=== PATIENT | male | born 1975 | race African-American/Black ===

== ENCOUNTER 2017-08-14 16:46 | Inpatient (IN) | payer OTHER ==
[~2017-08-14] VITALS: Ht 182.9 cm; Wt 120.2 kg
--- NOTE | 2017-08-14 17:07 | PHYS DOC ---
Past Medical History Past Medical History: DVT Past Surgical History: No Surgical History Alcohol Use: Occasionally Drug Use: None Adult General Chief Complaint Chief Complaint: LOWER EXT PAIN HPI HPI Patient is a 42 year old male with history of DVTs who presents today with left lower extremity swelling that he noted this morning. Patient denies any known injury. Denies any long air or car travel. Denies any use of hormones. Denies any chest pain but states he has shortness of breath on exertion. Denies any recent hospitalizations. He states he takes aspirin 81 mg daily. Review of Systems Review of Systems Constitutional: Denies fever or chills [] Eyes: Denies change in visual acuity, redness, or eye pain [] HENT: Denies nasal congestion or sore throat [] Respiratory: Denies cough or shortness of breath [] Cardiovascular: No additional information not addressed in HPI [] GI: Denies abdominal pain, nausea, vomiting, bloody stools or diarrhea [] : Denies dysuria or hematuria [] Musculoskeletal: Denies back pain or joint pain [] Integument: Left lower extremity Neurologic: Denies headache, focal weakness or sensory changes [] All other systems were reviewed and found to be within normal limits, except as documented in this note. Current Medications Current Medications Current Medications Medications (Trade) Dose Ordered Sig/Tiara Start Time Stop Time Status Last Admin Dose Admin Acetaminophen (Tylenol) 650 mg PRN Q4HRS PRN 08/14/17 19:45 08/15/17 19:44 Diphtheria/ Tetanus/Acell Pertussis (Boostrix) 0.5 ml ONCE ONCE 08/14/17 17:15 08/14/17 17:16 DC 08/14/17 17:43 0.5 ML Heparin Sodium (Porcine) (Heparin Sodium) 1,600 unit PRN Q6HRS PRN 08/14/17 19:45 Heparin Sodium/ Dextrose 500 ml @ 0 mls/hr CONT PRN 08/14/17 19:45 Info (Do NOT chart on this entry -- for MONITORING) 1 each PRN DAILY PRN 08/14/17 19:45 08/16/17 19:44 Iohexol (Omnipaque 300 Mg/ml) 75 ml 1X ONCE 08/14/17 19:45 08/14/17 19:46 DC Morphine Sulfate 2 mg PRN Q2HR PRN 08/14/17 19:45 08/15/17 19:44 Nitroglycerin (Nitrostat) 0.4 mg PRN Q5MIN PRN 08/14/17 19:45 08/15/17 19:44 Ondansetron HCl (Zofran) 4 mg PRN Q8HRS PRN 08/14/17 19:45 08/15/17 19:44 Sodium Chloride 1,000 ml @ 75 mls/hr 1X ONCE 08/14/17 19:45 08/15/17 09:04 Warfarin Sodium (Coumadin Per Pharmacy) 1 each PRN DAILY PRN 08/14/17 19:45 08/14/17 19:38 1 EACH Warfarin Sodium (Coumadin) 7.5 mg 1X WARF ONCE 08/14/17 20:00 08/14/17 20:01 Allergies Allergies Allergies Coded Allergies Type Severity Reaction Last Updated Verified No Known Drug Allergies 08/14/17 No Physical Exam Physical Exam Constitutional: Well developed, well nourished, no acute distress, non-toxic appearance. [] HENT: Normocephalic, atraumatic, bilateral external ears normal, oropharynx moist, no oral exudates, nose normal. [] Eyes: PERRLA, EOMI, conjunctiva normal, no discharge. [] Neck: Normal range of motion, no tenderness, supple, no stridor. [] Cardiovascular:Heart rate regular rhythm, no murmur [] Lungs & Thorax: Bilateral breath sounds clear to auscultation [] Abdomen: Bowel sounds normal, soft, no tenderness, no masses, no pulsatile masses. [] Skin: Warm, dry, and left lower extremity with +1 generalized swelling. Left lower extremity feels warm. There are varicose veins noted to bilateral lower extremities. +2 bilateral pedal pulses. Negative Homans sign to bilateral lower extremities. Cap refill less than 2 seconds the left lower extremity. Back: No tenderness, no CVA tenderness. [] Extremities: No tenderness, no cyanosis, no clubbing, ROM intact, no edema. [] Neurologic: Alert and oriented X 3, normal motor function, normal sensory function, no focal deficits noted. [] Psychologic: Affect normal, judgement normal, mood normal. [] Current Patient Data Vital Signs Vital Signs Date Time Temp Pulse Resp B/P (MAP) Pulse Ox O2 Delivery O2 Flow Rate FiO2 08/14/17 18:41 90 137/81 (99) 97 Room Air 08/14/17 16:50 98.3 18 98.3 Lab Values Laboratory Tests Test 08/14/17 18:36 White Blood Count 9.1 x10^3/uL (4.0-11.0) Red Blood Count 5.00 x10^6/uL (4.30-5.70) Hemoglobin 13.4 g/dL (13.0-17.5) Hematocrit 40.4 % (39.0-53.0) Mean Corpuscular Volume 81 fL (79-100) Mean Corpuscular Hemoglobin 27 pg (25-35) Mean Corpuscular Hemoglobin Concent 33 g/dL (31-37) Red Cell Distribution Width 13.6 % (11.5-14.5) Platelet Count 206 x10^3/uL (140-400) Neutrophils (%) (Auto) 76 % (31-73) H Lymphocytes (%) (Auto) 13 % (24-48) L Monocytes (%) (Auto) 6 % (0-9) Eosinophils (%) (Auto) 4 % (0-3) H Basophils (%) (Auto) 1 % (0-3) Neutrophils # (Auto) 7.0 x10^3uL (1.8-7.7) Lymphocytes # (Auto) 1.2 x10^3/uL (1.0-4.8) Monocytes # (Auto) 0.6 x10^3/uL (0.0-1.1) Eosinophils # (Auto) 0.4 x10^3/uL (0.0-0.7) Basophils # (Auto) 0.1 x10^3/uL (0.0-0.2) Prothrombin Time 13.2 SEC (11.7-14.0) Prothrombin Time INR 1.1 (0.8-1.1) PTT 25 SEC (24-38) Sodium Level 140 mmol/L (136-145) Potassium Level 3.8 mmol/L (3.5-5.1) Chloride Level 103 mmol/L (98-107) Carbon Dioxide Level 28 mmol/L (21-32) Anion Gap 9 (6-14) Blood Urea Nitrogen 18 mg/dL (8-26) Creatinine 1.1 mg/dL (0.7-1.3) Estimated GFR (Cockcroft-Gault) 89.7 Glucose Level 138 mg/dL (70-99) H Calcium Level 8.9 mg/dL (8.5-10.1) Laboratory Tests 08/14/17 18:36 Laboratory Tests 08/14/17 18:36 EKG EKG [] Radiology/Procedures Radiology/Procedures [] Course & Med Decision Making Course & Med Decision Making Pertinent Labs and Imaging studies reviewed. (See chart for details) This is a 42-year-old male patient with history of diabetes presenting today with left lower extremity swelling for 1 day with SOA on exertion. Doppler of the left lower extremity was obtained. Venous Doppler of the left lower extremity was positive for an extensive venous thrombosis. Consulted with Dr. Yary Edge harpoon engagement planning operator for Dr. Valladares who accepted patient for admission. Patient was started on heparin protocol. CTA chest was ordered. Dragon Disclaimer Dragon Disclaimer This electronic medical record was generated, in whole or in part, using a voice recognition dictation system. Departure Departure Impression: Primary Impression: Deep vein thrombosis (DVT) of left lower extremity Disposition: 09 ADMITTED INPATIENT Admitting Physician: Mayelin Valladares Condition: STABLE Problem Qualifiers Primary Impression: Deep vein thrombosis (DVT) of left lower extremity Affected thrombotic vein of extremity: popliteal Chronicity: unspecified Qualified Codes: I82.432 - Acute embolism and thrombosis of left popliteal vein LEONELA [place] APRN Aug 14, 2017 17:07
[2017-08-14] MEDS ORDERED: DIPHTH,PERTUSS(ACELL),TET TOX 0.5 ML DISP.SYRIN. VAX IM ONE (17:15)
--- NOTE | 2017-08-14 18:33 | RAD ---
A left lower extremity venous Doppler dated 08/14/2017. No comparison available. Clinical indication: Swelling for one day. FINDINGS: Grayscale, color-flow and spectral waveform analysis performed to include the deep venous system of the left lower extremity. There is noncompressibility and lack of flow within the left common femoral vein to the posterior tibial veins of the calf. The distal posterior tibial vein show some flow and there is flow within the peroneal veins. Thrombosis appears to extend to the left iliac vein. The right common femoral vein is patent. IMPRESSION: Extensive left lower extremity deep vein thrombosis. Electronically signed by: Ty Michaels MD (08/14/2017 6:29 PM) [id number]
[2017-08-14 18:50] LABS: BASO # 0.1 x10^3/uL (0.0-0.2); BASO % 1 % (0-3); EOS % 4 % (0-3); HEMATOCRIT 40.4 % (39.0-53.0); HEMOGLOBIN 13.4 g/dL (13.0-17.5); LYMPH # 1.2 x10^3/uL (1.0-4.8); LYMPH % 13 % (24-48); MEAN CORPUSCULAR HEMOGLOBIN 27 pg (25-35); MEAN CORPUSCULAR HGB CONC 33 g/dL (31-37); MEAN CORPUSCULAR VOLUME 81 fL (79-100); MONO % 6 % (0-9); NEUT % 76 % (31-73); PLATELET COUNT 206 x10^3/uL (140-400); RED CELL DISTRIBUTION WIDTH 13.6 % (11.5-14.5); WHITE BLOOD COUNT 9.1 x10^3/uL (4.0-11.0)
[2017-08-14 18:53] LABS: INR 1.1 (0.8-1.1); PROTHROMBIN TIME PATIENT 13.2 SEC (11.7-14.0)
[2017-08-14 18:56] LABS: CALCIUM 8.9 mg/dL (8.5-10.1); CREATININE 1.1 mg/dL (0.7-1.3); GFR 89.7; POTASSIUM 3.8 mmol/L (3.5-5.1)
[2017-08-14] MEDS ORDERED: IV NORMAL SALINE 1000ML BAG 1,000 ML IV ONE (19:45)
[2017-08-14] MEDS ORDERED: HEPARIN for IV BOLUS 10,000 UNIT/10 ML VIAL. IV PRN ×2 (19:45)
[2017-08-14] MEDS ORDERED: ONDANSETRON PF 4 MG/2 ML VIAL. IV PRN (19:45)
[2017-08-14] MEDS ORDERED: IOHEXOL 300 MG/ML 100ML VIAL. IV ONE (19:45)
[2017-08-14] MEDS ORDERED: MORPHINE SULFATE 2 MG/ML DISP.SYRIN. IV PRN (19:45)
[2017-08-14] MEDS ORDERED: HEPARIN for IV BOLUS 10,000 UNIT/10 ML VIAL. IV ONE (19:45)
[2017-08-14] MEDS ORDERED: CONTRAST GIVEN MC PRN (19:45)
[2017-08-14] MEDS ORDERED: NITROGLYCERIN SUBLINGUAL 0.4 MG BOTTLE OF 25. SL PRN (19:45)
[2017-08-14] MEDS ORDERED: ACETAMINOPHEN 325 MG TABLET. PO PRN (19:45)
[2017-08-14] MEDS ORDERED: WARFARIN 7.5 MG TABLET. PO ONE (20:00)
[2017-08-14] MEDS: HEPARIN 25,000UTS/500ML PREMIX 500 ML IV PRN (20:01)
[2017-08-14 21:15] VITALS: BP 146/88
--- NOTE | 2017-08-14 21:29 | RAD ---
Indication: Lower extremity DVT. Shortness of breath. TECHNIQUE: CT angiography of the chest with 75 mL of Omnipaque 300 with multiplanar MIP reformats. COMPARISON: None FINDINGS: Highly limited study due to suboptimal contrast bolus timing. No filling defects in the main pulmonary trunk or proximal right and left pulmonary arteries. Heart is normal in size. No pericardial or pleural effusion. There is dilation of the main pulmonary trunk measuring 3.4 cm. Borderline to minimally enlarged bilateral axillary lymph nodes noted, the largest measuring 1.6 x 1.0 cm on the left. No mediastinal or hilar adenopathy. Lungs are clear. Visualized sections through the liver, spleen, pancreas, adrenals are within normal limits. High attenuating right upper pole renal lesion noted measuring 2 cm. No suspicious bony lesion. IMPRESSION: 1. Significantly limited please study due to contrast bolus timing. No evidence of PE in the main pulmonary trunk or proximal right and left pulmonary arteries. Distal segmental or subsegmental PE not ruled out. If concern remains high, please consider nuclear medicine VQ scan. 2. Dilated main pulmonary artery. Correlate for pulmonary arterial hypertension. 3. Right upper pole renal lesion, indeterminate. Differential diagnoses include minimally complicated cyst, simple cyst or small RCC. Follow-up CT abdomen with IV contrast and 3-4 months recommended. Electronically signed by: Simón Dooley DO (08/14/2017 9:26 PM) [facility]
[2017-08-14 23:52] VITALS: BP 113/72
[2017-08-15 02:21] VITALS: BP 121/79
[2017-08-15 03:26] LABS: BASO # 0.1 x10^3/uL (0.0-0.2); BASO % 1 % (0-3); EOS % 8 % (0-3); HEMATOCRIT 39.7 % (39.0-53.0); LYMPH # 1.3 x10^3/uL (1.0-4.8); LYMPH % 16 % (24-48); MEAN CORPUSCULAR HEMOGLOBIN 27 pg (25-35); MEAN CORPUSCULAR HGB CONC 33 g/dL (31-37); MEAN CORPUSCULAR VOLUME 81 fL (79-100); MONO % 9 % (0-9); NEUT % 66 % (31-73); PLATELET COUNT 195 x10^3/uL (140-400); RED BLOOD COUNT 4.89 x10^6/uL (4.30-5.70); WHITE BLOOD COUNT 7.9 x10^3/uL (4.0-11.0)
[2017-08-15 03:38] LABS: CALCIUM 8.7 mg/dL (8.5-10.1); GFR 100.1; POTASSIUM 3.6 mmol/L (3.5-5.1)
[2017-08-15 03:41] LABS: INR 1.1 (0.8-1.1); PROTHROMBIN TIME PATIENT 13.8 SEC (11.7-14.0)
[2017-08-15 07:00] VITALS: BP 119/78
--- NOTE | 2017-08-15 10:09 | PDOC1 ---
History and Physical Date of Admission Date of Admission DATE: 08/14/17 Identification/Chief Complaint Chief Complaint Swollen leg Problems: Source Source: Patient History of Present Illness History of Present Illness Pt says that he woke up yesterday morning with his entire left leg swollen and in pain. He says that he has history of having small blood clots in the past and was just put on aspirin. He has never been on blood thinners. He has not had any recent injuries. No FH of blood clots that he knows of. Past Medical History Cardiovascular: No pertinent hx Pulmonary: No pertinent hx GI: No pertinent hx Heme/Onc: No pertinent hx Hepatobiliary: No pertinent hx Psych: No pertinent hx Rheumatologic: No pertinent hx Infectious disease: No pertinent hx ENT: No pertinent hx Renal/: No pertinent hx Endocrine: No pertinent hx Dermatology: Eczema Past Surgical History Past Surgical History: No pertinent history Family History Family History: Diabetes Social History Smoke: No ALCOHOL: occassional Drugs: None Current Problem List Problem List Problems Medical Problems: (1) Cellulitis of left lower extremity Status: Acute (2) Deep vein thrombosis (DVT) of left lower extremity Status: Acute (3) Varicose veins of lower extremity Status: Acute Problems: Current Medications Current Medications Current Medications Diphtheria/ Tetanus/Acell Pertussis (Boostrix) 0.5 ml ONCE ONCE VAX IM Last administered on 08/14/17 17:43; Start 08/14/17 at 17:15; Stop 08/14/17 at 17 :16; Status DC Heparin Sodium (Porcine) (Heparin Sodium) 8,500 unit 1X ONCE IV Last administered on 08/14/17 20:00; Start 08/14/17 at 19:45; Stop 08/14/17 at 19 :46; Status DC Heparin Sodium/ Dextrose 500 ml @ 0 mls/hr CONT PRN IV SEE I/O RECORD Last administered on 08/14/17 20:01; Start 08/14/17 at 19:45 Heparin Sodium (Porcine) (Heparin Sodium) 3,200 unit PRN Q6HRS PRN IV FOR UFH LEVEL LESS THAN 0.2; Start 08/14/17 at 19:45 Heparin Sodium (Porcine) (Heparin Sodium) 1,600 unit PRN Q6HRS PRN IV FOR UFH LEVEL 0.2 - 0.29; Start 08/14/17 at 19:45 Warfarin Sodium (Coumadin Per Pharmacy) 1 each PRN DAILY PRN MC PER PROTOCOL Last administered on 08/14/17 19:38; Start 08/14/17 at 19:45 Warfarin Sodium (Coumadin) 7.5 mg 1X WARF ONCE PO Last administered on 19:56; Start 08/14/17 at 20:00; Stop 08/14/17 at 20:01; Status DC Ondansetron HCl (Zofran) 4 mg PRN Q8HRS PRN IV NAUSEA/VOMITING; Start at 19:45; Stop 08/15/17 at 19:44 Morphine Sulfate 2 mg PRN Q2HR PRN IV PAIN; Start 08/14/17 at 19:45; Stop at 19:44 Acetaminophen (Tylenol) 650 mg PRN Q4HRS PRN PO FEVER; Start 08/14/17 at 19:45 ; Stop 08/15/17 at 19:44 Nitroglycerin (Nitrostat) 0.4 mg PRN Q5MIN PRN SL CHEST PAIN; Start 08/14/17 at 19:45; Stop 08/15/17 at 19:44 Sodium Chloride 1,000 ml @ 75 mls/hr 1X ONCE IV Last administered on 22:07; Start 08/14/17 at 19:45; Stop 08/15/17 at 09:04; Status DC Iohexol (Omnipaque 300 Mg/ml) 75 ml 1X ONCE IV Last administered on 20:18; Start 08/14/17 at 19:45; Stop 08/14/17 at 19:46; Status DC Info (Do NOT chart on this entry -- for MONITORING) 1 each PRN DAILY PRN MC SEE COMMENTS; Start 08/14/17 at 19:45; Stop 08/16/17 at 19:44 Allergies Allergies: Coded Allergies: No Known Drug Allergies (Unverified , 08/14/17) ROS General: No: Chills, Night Sweats PSYCHOLOGICAL ROS: No: Anxiety, Depression Eyes: No Decreased vision, No Eye Pain HEENT: No: Visual Changes, Nasal congestion, Sore Throat ALLERGY AND IMMUNOLOGY: No: Hives, Post Nasal Drip Hematological and Lymphatic: YES: Blood Clots, No: Bleeding Problems, Night Sweats Respiratory: No: Cough, Shortness of breath Cardiovascular: No Chest Pain, No Palpitations, No Edema Gastrointestinal: No Nausea, No Vomiting, No Abdominal Pain, No Diarrhea, No Constipation Genitourinary: No Dysuria, No Urgency Musculoskeletal: Yes Joint Swelling, No Joint Pain Neurological: No Impaired Coord/balance, No Numbness/Tingling Skin: No Rash, No Skin Lesion Changes Physical Exam General: Alert, Oriented X3, Cooperative, No acute distress HEENT: Atraumatic, PERRLA, EOMI, Mucous membr. moist/pink Lungs: Clear to auscultation, Normal air movement Heart: RRR, no rubs, no gallops, no murmurs Abdomen: Normal bowel sounds, No tenderness, No hepatosplenomegaly Extremities: Other (left lower extremity swollen from hip on down, NTTP, varicose veins seen) Skin: No rashes, No breakdown, No significant lesion Neuro: Normal tone, Sensation intact, Cranial nerves 3-12 NL Psych/Mental Status: Mental status NL, Mood NL Vitals Vitals Vital Signs Date Time Temp Pulse Resp B/P (MAP) Pulse Ox O2 Delivery O2 Flow Rate FiO2 08/15/17 07:00 98.4 89 20 119/78 (92) 99 Room Air 98.4 Labs Labs Laboratory Tests Test 08/14/17 18:36 08/15/17 02:15 08/15/17 08:05 White Blood Count 9.1 x10^3/uL (4.0-11.0) 7.9 x10^3/uL (4.0-11.0) Red Blood Count 5.00 x10^6/uL (4.30-5.70) 4.89 x10^6/uL (4.30-5.70) Hemoglobin 13.4 g/dL (13.0-17.5) 13.0 g/dL (13.0-17.5) Hematocrit 40.4 % (39.0-53.0) 39.7 % (39.0-53.0) Mean Corpuscular Volume 81 fL (79-100) 81 fL (79-100) Mean Corpuscular Hemoglobin 27 pg (25-35) 27 pg (25-35) Mean Corpuscular Hemoglobin Concent 33 g/dL (31-37) 33 g/dL (31-37) Red Cell Distribution Width 13.6 % (11.5-14.5) 14.0 % (11.5-14.5) Platelet Count 206 x10^3/uL (140-400) 195 x10^3/uL (140-400) Neutrophils (%) (Auto) 76 % (31-73) 66 % (31-73) Lymphocytes (%) (Auto) 13 % (24-48) 16 % (24-48) Monocytes (%) (Auto) 6 % (0-9) 9 % (0-9) Eosinophils (%) (Auto) 4 % (0-3) 8 % (0-3) Basophils (%) (Auto) 1 % (0-3) 1 % (0-3) Neutrophils # (Auto) 7.0 x10^3uL (1.8-7.7) 5.2 x10^3uL (1.8-7.7) Lymphocytes # (Auto) 1.2 x10^3/uL (1.0-4.8) 1.3 x10^3/uL (1.0-4.8) Monocytes # (Auto) 0.6 x10^3/uL (0.0-1.1) 0.7 x10^3/uL (0.0-1.1) Eosinophils # (Auto) 0.4 x10^3/uL (0.0-0.7) 0.6 x10^3/uL (0.0-0.7) Basophils # (Auto) 0.1 x10^3/uL (0.0-0.2) 0.1 x10^3/uL (0.0-0.2) Prothrombin Time 13.2 SEC (11.7-14.0) 13.8 SEC (11.7-14.0) Prothromb Time International Ratio 1.1 (0.8-1.1) 1.1 (0.8-1.1) Activated Partial Thromboplast Time 25 SEC (24-38) Sodium Level 140 mmol/L (136-145) 139 mmol/L (136-145) Potassium Level 3.8 mmol/L (3.5-5.1) 3.6 mmol/L (3.5-5.1) Chloride Level 103 mmol/L (98-107) 105 mmol/L (98-107) Carbon Dioxide Level 28 mmol/L (21-32) 27 mmol/L (21-32) Anion Gap 9 (6-14) 7 (6-14) Blood Urea Nitrogen 18 mg/dL (8-26) 15 mg/dL (8-26) Creatinine 1.1 mg/dL (0.7-1.3) 1.0 mg/dL (0.7-1.3) Estimated GFR (Cockcroft-Gault) 89.7 100.1 Glucose Level 138 mg/dL (70-99) 107 mg/dL (70-99) Calcium Level 8.9 mg/dL (8.5-10.1) 8.7 mg/dL (8.5-10.1) Troponin I Quantitative < 0.017 ng/mL (0.000-0.055) Heparin Anti-Xa Act, Unfractionated 0.41 IU/mL (0.30-0.70) 0.40 IU/mL (0.30-0.70) Laboratory Tests Test 08/14/17 18:36 08/15/17 02:15 08/15/17 08:05 White Blood Count 9.1 x10^3/uL (4.0-11.0) 7.9 x10^3/uL (4.0-11.0) Red Blood Count 5.00 x10^6/uL (4.30-5.70) 4.89 x10^6/uL (4.30-5.70) Hemoglobin 13.4 g/dL (13.0-17.5) 13.0 g/dL (13.0-17.5) Hematocrit 40.4 % (39.0-53.0) 39.7 % (39.0-53.0) Mean Corpuscular Volume 81 fL (79-100) 81 fL (79-100) Mean Corpuscular Hemoglobin 27 pg (25-35) 27 pg (25-35) Mean Corpuscular Hemoglobin Concent 33 g/dL (31-37) 33 g/dL (31-37) Red Cell Distribution Width 13.6 % (11.5-14.5) 14.0 % (11.5-14.5) Platelet Count 206 x10^3/uL (140-400) 195 x10^3/uL (140-400) Neutrophils (%) (Auto) 76 % (31-73) 66 % (31-73) Lymphocytes (%) (Auto) 13 % (24-48) 16 % (24-48) Monocytes (%) (Auto) 6 % (0-9) 9 % (0-9) Eosinophils (%) (Auto) 4 % (0-3) 8 % (0-3) Basophils (%) (Auto) 1 % (0-3) 1 % (0-3) Neutrophils # (Auto) 7.0 x10^3uL (1.8-7.7) 5.2 x10^3uL (1.8-7.7) Lymphocytes # (Auto) 1.2 x10^3/uL (1.0-4.8) 1.3 x10^3/uL (1.0-4.8) Monocytes # (Auto) 0.6 x10^3/uL (0.0-1.1) 0.7 x10^3/uL (0.0-1.1) Eosinophils # (Auto) 0.4 x10^3/uL (0.0-0.7) 0.6 x10^3/uL (0.0-0.7) Basophils # (Auto) 0.1 x10^3/uL (0.0-0.2) 0.1 x10^3/uL (0.0-0.2) Prothrombin Time 13.2 SEC (11.7-14.0) 13.8 SEC (11.7-14.0) Prothromb Time International Ratio 1.1 (0.8-1.1) 1.1 (0.8-1.1) Activated Partial Thromboplast Time 25 SEC (24-38) Sodium Level 140 mmol/L (136-145) 139 mmol/L (136-145) Potassium Level 3.8 mmol/L (3.5-5.1) 3.6 mmol/L (3.5-5.1) Chloride Level 103 mmol/L (98-107) 105 mmol/L (98-107) Carbon Dioxide Level 28 mmol/L (21-32) 27 mmol/L (21-32) Anion Gap 9 (6-14) 7 (6-14) Blood Urea Nitrogen 18 mg/dL (8-26) 15 mg/dL (8-26) Creatinine 1.1 mg/dL (0.7-1.3) 1.0 mg/dL (0.7-1.3) Estimated GFR (Cockcroft-Gault) 89.7 100.1 Glucose Level 138 mg/dL (70-99) 107 mg/dL (70-99) Calcium Level 8.9 mg/dL (8.5-10.1) 8.7 mg/dL (8.5-10.1) Troponin I Quantitative < 0.017 ng/mL (0.000-0.055) Heparin Anti-Xa Act, Unfractionated 0.41 IU/mL (0.30-0.70) 0.40 IU/mL (0.30-0.70) VTE Prophylaxis Ordered VTE Prophylaxis Devices: No VTE Pharmacological Prophylaxi: Yes Assessment/Plan Assessment/Plan Pt is a 42yo AAM admitted for extensive DVT LLE 1)Unprovoked extensive LLE DVT- pt on bridging therapy and has been started on coumadin. Given extensive will consult Vascular to see if pt is a candidate for thrombectomy or if he should just be on medical treatment alone CHARISSE VASQUEZ MD Aug 15, 2017 10:09
[2017-08-15 11:00] VITALS: BP 111/85
[2017-08-15] MEDS: HEPARIN 25,000UTS/500ML PREMIX 500 ML IV PRN (11:58)
--- NOTE | 2017-08-15 12:59 | EKG ---
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 RI6.01 No previous ECG available for comparison Electronically Signed On 08-17-2017 16:54:26 FISHER TERRAPIN by Rock Tamez
[2017-08-15 15:00] VITALS: BP 112/67
[2017-08-15] MEDS ORDERED: WARFARIN 7.5 MG TABLET. PO ONE (16:00)
--- NOTE | 2017-08-15 17:00 | PDOC ---
Provider Note Provider Note (please see full dictation) 42 yo male was admitted with severe left leg swelling and pain. He was found to have extensive left iliofemoral DVT. He is on heparin infusion. Would get a hypercoagulable workup. Discussed risks and potential benefits of catheter directed thrombolysis. After discussing options, he elects to proceed. Will ask IR to start thrombolysis on Thursday. No need for urgent thrombolysis this weekend. JOSEPH WEINBERG MD Aug 15, 2017 16:59
[2017-08-15 19:00] VITALS: BP 122/74
[2017-08-15 22:55] VITALS: BP 131/77
[2017-08-16] MEDS: HEPARIN 25,000UTS/500ML PREMIX 500 ML IV PRN ×2 (02:51→17:58)
[2017-08-16 03:00] VITALS: BP 124/85
[2017-08-16 06:12] LABS: HEMATOCRIT 39.4 % (39.0-53.0); HEMOGLOBIN 12.9 g/dL (13.0-17.5); RED BLOOD COUNT 4.85 x10^6/uL (4.30-5.70); RED CELL DISTRIBUTION WIDTH 13.9 % (11.5-14.5); WHITE BLOOD COUNT 8.1 x10^3/uL (4.0-11.0)
[2017-08-16 06:23] LABS: INR 1.2 (0.8-1.1)
[2017-08-16 07:00] VITALS: BP 122/74
--- NOTE | 2017-08-16 09:05 | PDOC ---
SUBJECTIVE Subjective Pt doing well. Pain in leg has improved. Denies any chest pain or shortness of air. OBJECTIVE Vital Signs Vital Signs Date Time Temp Pulse Resp B/P (MAP) Pulse Ox O2 Delivery O2 Flow Rate FiO2 08/16/17 08:15 Room Air 08/16/17 07:00 97.7 83 20 122/74 (90) 97 Room Air 97.7 08/16/17 03:00 97.9 84 16 124/85 (98) 96 Room Air 97.9 08/15/17 22:55 97.7 82 16 131/77 (95) 96 Room Air 97.7 08/15/17 22:45 Room Air 08/15/17 19:00 97.9 85 18 122/74 (90) 93 Room Air 97.9 08/15/17 15:00 99.7 87 20 112/67 (82) 97 Room Air 99.7 08/15/17 11:00 99.5 72 20 111/85 (94) 97 Room Air 99.5 I & O Intake and Output 08/16/17 07:00 Intake Total 2050 ml Output Total 1200 ml Balance 850 ml Intake Oral 1050 ml IV Total 1000 ml Output Urine Total 1200 ml # Voids 2 PHYSICAL EXAM Physical Exam General: Alert, Oriented X3, Cooperative, No acute distress HEENT: Atraumatic, PERRLA, EOMI, Mucous membr. moist/pink Lungs: Clear to auscultation, Normal air movement Heart: RRR, no rubs, no gallops, no murmurs Abdomen: Normal bowel sounds, No tenderness, No hepatosplenomegaly Extremities: Other (left lower extremity swollen from hip on down, NTTP, varicose veins seen) Skin: No rashes, No breakdown, No significant lesion Neuro: Normal tone, Sensation intact, Cranial nerves 3-12 NL Psych/Mental Status: Mental status NL, Mood NL ASSESSMENT/PLAN Assessment/Plan Pt is a 42yo AAM admitted for extensive DVT LLE 1)Unprovoked extensive LLE ileofemoral DVT- pt on Heparin and Warfarin. Vascular has been consulted and are planning on IR doing catheter directed thrombolysis Thursday. They have ordered coagulative workup. 2)Renal lesions- incidental finding on CT. Repeat CT Ab in 3-4 mo Problems: COMMENT Lab Laboratory Tests Test 08/15/17 13:39 11/19/17 05:20 Heparin Anti-Xa Act, Unfractionated 0.39 IU/mL (0.30-0.70) 0.31 IU/mL (0.30-0.70) White Blood Count 8.1 x10^3/uL (4.0-11.0) Red Blood Count 4.85 x10^6/uL (4.30-5.70) Hemoglobin 12.9 g/dL (13.0-17.5) Hematocrit 39.4 % (39.0-53.0) Mean Corpuscular Volume 81 fL (79-100) Mean Corpuscular Hemoglobin 27 pg (25-35) Mean Corpuscular Hemoglobin Concent 33 g/dL (31-37) Red Cell Distribution Width 13.9 % (11.5-14.5) Platelet Count 200 x10^3/uL (140-400) Prothrombin Time 14.0 SEC (11.7-14.0) Prothromb Time International Ratio 1.2 (0.8-1.1) CHARISSE VASQUEZ MD Aug 16, 2017 09:05
--- NOTE | 2017-08-16 10:11 | CONS ---
DATE OF CONSULTATION: 08/15/2017 CHIEF COMPLAINT: Left leg swelling. HISTORY OF PRESENT ILLNESS: The patient is a 42-year-old male who was admitted yesterday with sudden onset left leg swelling. He awoke with left leg swelling and discomfort. He denies any previous history of leg swelling or history of deep venous thrombosis. He denies any family history of deep venous thrombosis. He denies any recent leg injury or prolonged periods of immobility. An ultrasound showed extensive left lower extremity deep venous thrombosis extending from the tibial veins, up through the left common femoral vein and into the iliac vein. He notes some improvement in his leg pain today with elevation. PAST MEDICAL HISTORY: None. He denies any previously known history of diabetes, hypertension or deep venous thrombosis. PAST SURGICAL HISTORY: Corneal transplant in February of this year. This was performed at [facility]. MEDICATIONS PRIOR TO ADMISSION: None. CURRENT MEDICATIONS: Heparin infusion. ALLERGIES: No known drug allergies. SOCIAL HISTORY: He denies any smoking. He notes very occasional alcohol use. FAMILY HISTORY: No family history of venous thrombosis. His mother has a history of diabetes as well as previous cerebrovascular accident. REVIEW OF SYSTEMS: No recent fevers, chills, chest pain or shortness of breath. No nausea, vomiting, diarrhea, constipation, hematochezia or melena, other GI symptoms. No unilateral weakness, numbness, vision loss, speech change, TIA or stroke type symptoms. He denies any previous lower extremity pain or swelling. PHYSICAL EXAMINATION: GENERAL: This is an obese male, in no acute distress. VITAL SIGNS: Temperature 99.7, pulse 87, blood pressure 112/67, respirations 20. NECK: Supple, no lymphadenopathy. CARDIOVASCULAR: Regular rhythm. ABDOMEN: Obese, soft, nontender, nondistended, no palpable masses. EXTREMITIES: He has palpable radial and pedal pulses bilaterally. He has moderate to severe swelling starting from the left thigh distally. No areas of skin breakdown on either lower extremity. LABORATORY DATA: Significant for white blood cell 7.9, hemoglobin 13.0, platelet count of 195. INR 1.1. Sodium 139, potassium 3.6, BUN 15, creatinine 1.0. Ultrasound as noted above. IMPRESSION: 1. Extensive left lower extremity deep venous thrombosis, extending up into the left iliac vein. This appears to be an unprovoked deep venous thrombosis. 2. Obesity. RECOMMENDATIONS: 1. Systemic anticoagulation. He is currently on a heparin infusion. 2. I outlined the options including risks and potential benefits of catheter-directed thrombolysis as well as the long-term risks of left leg deep venous thrombosis. Catheter-directed thrombolysis has been shown to decrease the risk of long-term postphlebitic syndrome. There are risks with the procedure itself including bleeding, infection, nerve injury. Bleeding may be at remote sites including intracranial bleeding, which can be catastrophic. After discussing risks and potential benefits of all treatment options, he would like to proceed with a catheter-directed thrombolysis to decrease his long-term risk of swelling and skin changes. Would hold warfarin anticoagulation, and we will ask Interventional Radiology to initiate thrombolysis on Thursday. We will get a hypercoagulable workup to help determine if he has a predisposition for venous thrombosis. JOSEPH WEINBERG MD DR: EVERETTE/issac JOB#: [id number] / [id number] jonnathan DEAN DR
[2017-08-16 10:51] VITALS: BP 114/68
[2017-08-16 15:00] VITALS: BP 142/55
[2017-08-16 19:00] VITALS: BP 152/91
[2017-08-16 23:00] VITALS: BP 129/84
[2017-08-17] VITALS (14 sets, daily range): BP systolic 119–153; BP diastolic 80–98
[2017-08-17 04:49] LABS: INR 1.3 (0.8-1.1); PROTHROMBIN TIME PATIENT 15.2 SEC (11.7-14.0)
[2017-08-17] MEDS ORDERED: LIDOCAINE 1% / SOD BICARB 8.4% 20 ML VIAL. IJ ONE ×2 (08:43→09:45)
[2017-08-17] MEDS ORDERED: IOHEXOL 300 MG/ML 100ML VIAL. ONE ×3 (08:44→13:19)
[2017-08-17] MEDS ORDERED: MIDAZOLAM HCL/PF 2 MG/2 ML VIAL. ONE (08:53)
[2017-08-17] MEDS ORDERED: fentaNYL PF VIAL 100 MCG/2 ML VIAL ONE (08:53)
[2017-08-17] MEDS ORDERED: ALTEPLASE 2MG VIAL 10 MG in IV NORMAL SALINE 100ML 100 ML IV ONE (09:00)
[2017-08-17] MEDS ORDERED: HEPARIN for IV BOLUS 10,000 UNIT/10 ML VIAL. ONE (09:18)
[2017-08-17] MEDS ORDERED: IOHEXOL 300 MG/ML 100ML VIAL. IART ONE ×2 (09:45→15:15)
[2017-08-17] MEDS ORDERED: MIDAZOLAM HCL/PF 2 MG/2 ML VIAL. IV ONE (09:45)
[2017-08-17] MEDS ORDERED: HEPARIN for IV BOLUS 10,000 UNIT/10 ML VIAL. IV ONE (09:45)
[2017-08-17] MEDS ORDERED: CONTRAST GIVEN MC PRN ×2 (09:45→11:00)
[2017-08-17] MEDS ORDERED: fentaNYL PF VIAL 100 MCG/2 ML VIAL IV ONE ×2 (09:45→12:15)
[2017-08-17] MEDS ORDERED: HEPARIN PF 500 UNIT/5 ML DISP.SYRIN. IV ONE ×2 (10:08→10:12)
[2017-08-17] MEDS ORDERED: IV NORMAL SALINE 1000ML BAG 1,000 ML IV ONE (10:15)
[2017-08-17] MEDS ORDERED: IOHEXOL 300 MG/ML 100ML VIAL. IV ONE ×2 (11:00)
[2017-08-17] MEDS ORDERED: FLU VACC QS2017-18 (36MOS+)/PF 0.5 ML SYRINGE. VAX IM ONE (11:00)
[2017-08-17 11:12] LABS: INR 1.2 (0.8-1.1); PROTHROMBIN TIME PATIENT 14.7 SEC (11.7-14.0)
--- NOTE | 2017-08-17 11:16 | PDOC ---
Provider Note Provider Note Vascular consults follow-up: Patient has had infusion catheter placed today. He is transferred to the intensive care unit for overnight thrombolysis. Review the results of his when complete. he may have iliac vein compression, as a causative etiology . HARDEEP SUE MD Aug 17, 2017 11:16
[2017-08-17] MEDS: HEPARIN 25,000UTS/500ML PREMIX 500 ML IV PRN (12:54)
[2017-08-17] MEDS ORDERED: fentaNYL PF VIAL 250 MCG/5 ML VIAL ONE (13:56)
[2017-08-17] MEDS ORDERED: MIDAZOLAM HCL/PF 5 MG/5 ML VIAL. ONE (13:56)
[2017-08-17] MEDS ORDERED: MORPHINE SULFATE 4 MG/ML DISP.SYRIN. IV PRN (14:45)
[2017-08-17] MEDS ORDERED: oxyCODONE/APAP 5/325 1 TAB TABLET PO PRN (14:45)
[2017-08-17] MEDS ORDERED: ONDANSETRON PF 4 MG/2 ML VIAL. IV PRN (14:45)
[2017-08-17] MEDS ORDERED: HEPARIN 25,000UTS/500ML PREMIX 500 ML IV PRN (15:00)
[2017-08-17] MEDS ORDERED: ALTEPLASE 25 MG in IV NORMAL SALINE 250ML 250 ML IV SCH ×2 (15:00→22:30)
[2017-08-17] MEDS ORDERED: fentaNYL PF VIAL 250 MCG/5 ML VIAL IV ONE (15:15)
[2017-08-17] MEDS ORDERED: MIDAZOLAM HCL/PF 5 MG/5 ML VIAL. IV ONE (15:15)
--- NOTE | 2017-08-17 15:38 | RAD ---
CT venogram abdomen, pelvis, upper thighs 08/17/2017 Indication: Abnormal venogram earlier today during attempted thrombolysis of the left lower extremity DVT. Technique: Multidetector CT imaging of the abdomen, pelvis, and thighs was performed following intravenous administration of IV contrast. 102nd delay was obtained. Discussion: There is diffuse edema through the left thigh. There is acute deep venous thrombosis involving the left lower extremity from the common femoral vein through the popliteal vein. Contrast from prior venogram was noted within the vein. The left common iliac vein is nonvisualized and appears to be at a chronically occluded or hypoplastic. Inferior vena cava is not visualized and appears to be either chronically occluded or hypoplastic. On the right the external iliac vein joins the internal iliac vein, however the common iliac vein is again not visualized. Multiple smaller collateral veins appear to be present. Filling of enlarged azygous and hemiazygos veins noted. 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 The renal veins appear to decompress through collateral veins including a probable splenorenal shunt on the left, and the ascites and hemiazygous collaterals. The azygous vein at the level of the descending thoracic aorta is a coronal in size to the descending thoracic aorta. The visualized lung bases demonstrate no acute abnormality. Hepatic veins are grossly patent emptying into a relatively normal-appearing proximal most IVC as it enters the right atrium. Liver is otherwise unremarkable. Gallbladder is unremarkable. Adrenal glands are grossly normal. Small hypodensities are noted throughout the right kidney suggestive of renal cysts. Contrast excretion from the kidneys noted. Spleen is normal in size if not slightly small. Pancreas is grossly unremarkable. No bowel obstruction is identified. No significant free fluid or free air is seen in the abdomen or pelvis. No gross bowel abnormality is detected. Impression: 1. Acute left lower extremity DVT with left lower extremity edema 2. 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 Multiple large collateral vessels are noted
[2017-08-17 15:56] LABS: HEMATOCRIT 44.1 % (39.0-53.0); HEMOGLOBIN 14.1 g/dL (13.0-17.5); RED BLOOD COUNT 5.27 x10^6/uL (4.30-5.70); RED CELL DISTRIBUTION WIDTH 14.3 % (11.5-14.5); WHITE BLOOD COUNT 14.5 x10^3/uL (4.0-11.0)
[2017-08-17 15:59] LABS: CALCIUM 9.3 mg/dL (8.5-10.1); CREATININE 0.9 mg/dL (0.7-1.3); GFR 113.1
[2017-08-17 16:01] LABS: POTASSIUM 3.4 mmol/L (3.5-5.1)
--- NOTE | 2017-08-17 18:12 | PDOC ---
ICU PROGRESS NOTES Subjective Transferred to ICU by vascular for thrombolytic therapy and had partial thrombectomy earlier today without complication. Still has left leg edema but no chest pain or SOA Objective Vitals Vital Signs Date Time Temp Pulse Resp B/P (MAP) Pulse Ox O2 Delivery O2 Flow Rate FiO2 08/17/17 16:24 98 12 122/88 (99) 99 Room Air 08/17/17 15:30 98.1 98.1 Input & Output Intake and Output 08/17/17 07:00 Intake Total 850 ml Output Total 1000 ml Balance -150 ml Intake Oral 350 ml IV Total 500 ml Output Urine Total 1000 ml Ventilator Settings Oxygen Delivery Device: Room Air SpO2: 99 Medications Medications Current Medications Alteplase, Recombinant 10 mg/ Sodium Chloride 100 ml @ 10 mls/hr 1X ONCE IV Last administered on 08/17/17 15:07; Start 08/17/17 at 09:00; Stop 08/17/17 at 18:59 Alteplase, Recombinant 25 mg/ Sodium Chloride 250 ml @ 10 mls/hr Q25H IV Last administered on 08/17/17 15:34; Start 08/17/17 at 15:00; Stop 08/17/17 at 15 :35; Status DC Famotidine (Pepcid Vial) 20 mg BID IVP ; Start 08/17/17 at 21:00 Fentanyl Citrate (Fentanyl 2ml Vial) 50 mcg 1X ONCE IV Last administered on 12:04; Start 08/17/17 at 12:15; Stop 08/17/17 at 12:16; Status DC Fentanyl Citrate (Fentanyl 2ml Vial) 100 mcg 1X ONCE IV Last administered on 08/17/17 10:14; Start 08/17/17 at 09:45; Stop 08/17/17 at 09:46; Status DC Fentanyl Citrate (Fentanyl 2ml Vial) 100 mcg STK-MED ONCE .ROUTE ; Start at 08:53; Stop 08/17/17 at 08:54; Status DC Fentanyl Citrate (Fentanyl 5ml Vial) 100 mcg 1X ONCE IV ; Start 08/17/17 at 15 :15; Stop 08/17/17 at 15:16; Status DC Fentanyl Citrate (Fentanyl 5ml Vial) 250 mcg STK-MED ONCE .ROUTE ; Start at 13:56; Stop 08/17/17 at 13:57; Status DC Heparin Sodium (Porcine) (Hep Lock Adult) 500 unit STK-MED ONCE IV ; Start at 10:08; Stop 08/17/17 at 10:09; Status DC Heparin Sodium (Porcine) (Hep Lock Adult) 500 unit STK-MED ONCE IV ; Start at 10:12; Stop 08/17/17 at 10:13; Status DC Heparin Sodium (Porcine) (Heparin Sodium) 10,000 unit 1X ONCE IV Last administered on 08/17/17t 10:14; Start 08/17/17 at 09:45; Stop 08/17/17 at 09 :46; Status DC Heparin Sodium (Porcine) (Heparin Sodium) 10,000 unit STK-MED ONCE .ROUTE ; Start 08/17/17 at 09:18; Stop 08/17/17 at 09:19; Status DC Heparin Sodium/ Dextrose 500 ml @ 0 mls/hr CONT PRN IV SEE I/O RECORD Last administered on 08/17/17t 15:37; Start 08/17/17 at 15:00 Heparin Sodium/ Sodium Chloride 500 ml @ As Directed STK-MED ONCE .ROUTE ; Start 08/17/17 at 09:18; Stop 08/17/17 at 09:19; Status DC Heparin Sodium/ Sodium Chloride 1,000 ml @ As Directed STK-MED ONCE .ROUTE ; Start 08/17/17 at 08:43; Stop 08/17/17 at 08:44; Status DC Heparin Sodium/ Sodium Chloride 2,000 unit 1X ONCE IART Last administered on 08/17/17t 10:16; Start 08/17/17 at 09:45; Stop 08/17/17 at 09:46; Status DC Influenza Virus Vaccine Quadrival (Fluarix Quad [id number] Syringe) 0.5 ml ONCE ONCE VAX IM ; Start 08/17/17 at 11:00; Stop 08/17/17 at 11:01; Status DC Info (Do NOT chart on this entry -- for MONITORING) 1 each PRN DAILY PRN MC SEE COMMENTS; Start 08/17/17 at 09:45; Stop 08/19/17 at 09:44; Status Cancel Info (Do NOT chart on this entry -- for MONITORING) 1 each PRN DAILY PRN MC SEE COMMENTS; Start 08/17/17 at 11:00; Stop 08/19/17 at 10:59 Iohexol (Omnipaque 300 Mg/ml) 25 ml 1X ONCE IV Last administered on 11:02; Start 08/17/17 at 11:00; Stop 08/17/17 at 11:01; Status DC Iohexol (Omnipaque 300 Mg/ml) 40 ml 1X ONCE IART ; Start 08/17/17 at 15:15; Stop 08/17/17 at 15:16; Status DC Iohexol (Omnipaque 300 Mg/ml) 100 ml 1X ONCE IART Last administered on 10:16; Start 08/17/17 at 09:45; Stop 08/17/17 at 09:46; Status DC Iohexol (Omnipaque 300 Mg/ml) 100 ml 1X ONCE IV Last administered on 11:02; Start 08/17/17 at 11:00; Stop 08/17/17 at 11:01; Status DC Iohexol (Omnipaque 300 Mg/ml) 100 ml STK-MED ONCE .ROUTE ; Start 08/17/17 at 08 :44; Stop 08/17/17 at 08:45; Status DC Iohexol (Omnipaque 300 Mg/ml) 100 ml STK-MED ONCE .ROUTE ; Start 08/17/17 at 09 :43; Stop 08/17/17 at 09:44; Status DC Iohexol (Omnipaque 300 Mg/ml) 100 ml STK-MED ONCE .ROUTE ; Start 08/17/17 at 13 :19; Stop 08/17/17 at 13:20; Status DC Lidocaine/Sodium Bicarbonate (Buffered Lidocaine 1%) 20 ml 1X ONCE IJ Last administered on 08/17/17 10:15; Start 08/17/17 at 09:45; Stop 08/17/17 at 09 :46; Status DC Lidocaine/Sodium Bicarbonate (Buffered Lidocaine 1%) 20 ml STK-MED ONCE IJ ; Start 08/17/17 at 08:43; Stop 08/17/17 at 08:44; Status DC Midazolam HCl (Versed) 2 mg 1X ONCE IV Last administered on 08/17/17 10:15; Start 08/17/17 at 09:45; Stop 08/17/17 at 09:46; Status DC Midazolam HCl (Versed) 2 mg STK-MED ONCE .ROUTE ; Start 08/17/17 at 08:53; Stop 08/17/17 at 08:54; Status DC Midazolam HCl (Versed) 2.5 mg 1X ONCE IV ; Start 08/17/17 at 15:15; Stop at 15:16; Status DC Midazolam HCl (Versed) 5 mg STK-MED ONCE .ROUTE ; Start 08/17/17 at 13:56; Stop 08/17/17 at 13:57; Status DC Morphine Sulfate 4 mg PRN Q2HR PRN IV MODERATE, SEVERE PAIN Last administered on 08/17/17 15:28; Start 08/17/17 at 14:45 Ondansetron HCl (Zofran) 4 mg PRN Q6HRS PRN IV NAUSEA/VOMITING; Start at 14:45 Oxycodone/ Acetaminophen (Percocet 5/325) 1 tab PRN Q4HRS PRN PO MILD PAIN; Start 08/17/17 at 14:45 Oxycodone/ Acetaminophen (Percocet 5/325) 2 tab PRN Q4HRS PRN PO MODERATE PAIN , SEVERE PAIN; Start 08/17/17 at 16:45 Sodium Chloride 1,000 ml @ 125 mls/hr 1X ONCE IV Last administered on t 10:15; Start 08/17/17 at 10:15; Stop 08/17/17 at 18:14 Physical Exam ROS: No Nausea, No Chest Pain, No Abdominal Pain General: Alert, Oriented X4, No acute distress Lungs: Clear Cardiovascular: S1, S2 Abdomen: Soft, Non-tender Skin: Warm Neuro Exam: Normal Speech Impression . occlusive DVT left leg - likely May-Thurner Syndrome Plan . continue thrombolytics with more clot extraction planned tomorrow by Nevaeh MONCADA MD Aug 17, 2017 18:12
[2017-08-17] MEDS: FAMOTIDINE 20 MG/2 ML VIAL IVP SCH (21:12)
[2017-08-17 21:23] LABS: HEMOGLOBIN 13.4 g/dL (13.0-17.5); RED BLOOD COUNT 5.01 x10^6/uL (4.30-5.70); RED CELL DISTRIBUTION WIDTH 13.7 % (11.5-14.5)
[2017-08-17 21:49] LABS: CALCIUM 9.3 mg/dL (8.5-10.1); GFR 100.1; POTASSIUM 3.9 mmol/L (3.5-5.1)
[2017-08-17] MEDS: oxyCODONE/APAP 5/325 1 TAB TABLET PO PRN (23:30)
[2017-08-18] VITALS (19 sets, daily range): BP systolic 104–180; BP diastolic 62–90
[2017-08-18 03:50] LABS: HEMATOCRIT 38.2 % (39.0-53.0); HEMOGLOBIN 12.6 g/dL (13.0-17.5); RED BLOOD COUNT 4.69 x10^6/uL (4.30-5.70); RED CELL DISTRIBUTION WIDTH 13.6 % (11.5-14.5); WHITE BLOOD COUNT 10.3 x10^3/uL (4.0-11.0)
[2017-08-18 03:59] LABS: INR 1.8 (0.8-1.1); PROTHROMBIN TIME PATIENT 19.7 SEC (11.7-14.0)
[2017-08-18 04:05] LABS: CALCIUM 8.5 mg/dL (8.5-10.1); CREATININE 0.9 mg/dL (0.7-1.3); GFR 113.1; POTASSIUM 3.6 mmol/L (3.5-5.1)
[2017-08-18] MEDS ORDERED: HEPARIN for IV BOLUS 10,000 UNIT/10 ML VIAL. IV PRN ×2 (04:45)
[2017-08-18] MEDS ORDERED: IV NORMAL SALINE 250ML 250 ML IV PRN (05:00)
[2017-08-18] MEDS: HEPARIN 25,000UTS/500ML PREMIX 500 ML IV PRN ×2 (05:00→16:30)
[2017-08-18 09:15] LABS: HEMATOCRIT 41.5 % (39.0-53.0); HEMOGLOBIN 13.5 g/dL (13.0-17.5); RED BLOOD COUNT 5.1 x10^6/uL (4.30-5.70); RED CELL DISTRIBUTION WIDTH 14.2 % (11.5-14.5); WHITE BLOOD COUNT 9.6 x10^3/uL (4.0-11.0)
[2017-08-18] MEDS ORDERED: IOHEXOL 300 MG/ML 100ML VIAL. ONE ×2 (09:51→10:27)
[2017-08-18] MEDS ORDERED: LIDOCAINE 1% / SOD BICARB 8.4% 20 ML VIAL. IJ ONE ×2 (09:51→10:45)
[2017-08-18 10:12] LABS: CALCIUM 9.2 mg/dL (8.5-10.1); CREATININE 0.9 mg/dL (0.7-1.3); GFR 113.1; POTASSIUM 3.7 mmol/L (3.5-5.1)
[2017-08-18] MEDS ORDERED: IOHEXOL 300 MG/ML 100ML VIAL. IART ONE (10:45)
--- NOTE | 2017-08-18 11:44 | PDOC ---
Provider Note Provider Note IR NOTE Mr Guo presented with LLE DVT from popliteal vein into iliacs, by ultrasound. Conventional and CT venograms were obtained during initial thrombolysis from a left popliteal approach. 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 This appear to involve the renal veins, as large collaterals are seen on both sides. The common iliac veins are non visualized and the lower extremities drain to multiple pelvic collaterals, and via the azygous and hemiazygous veins. 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 Over night the patient' s fibrinogen dropped to below 60 despite tPA dose adjustment, necessitating termination of thrombolysis and resumption of heparin anticoagulation. Venogram was performed today showing successful removal of clot from the targeted veins. however there is very limited outflow, which is at least partially chronic. Sheath was removed. Can resume anticoagulation today. Would consider adding compression stockings. RAYRAY BOLIVAR MD Aug 18, 2017 11:44
[2017-08-18] MEDS: FAMOTIDINE 20 MG/2 ML VIAL IVP SCH (13:07)
[2017-08-18] MEDS: oxyCODONE/APAP 5/325 1 TAB TABLET PO PRN ×2 (13:07→21:06)
[2017-08-18] MEDS ORDERED: WARFARIN 5 MG TABLET. PO ONE (16:00)
--- NOTE | 2017-08-18 16:49 | PDOC ---
Provider Note Provider Note Vascular F/U Venogram and CT reviewed. 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 This accounts for his stanley. varicose veins and thrombosis Discussed with pt. Needs Stanley 20 mmHg compression support hose Rx give to pt. For now: Stanley knee high medium strength tubigrips Severe elevation of lt leg when in bed, no prolonged sitting, meals and BR only OK to ambulate and ok to RTW when he has proper compression and anticoagulation , Will allow ambulation when Tubigripson Add Aspirin 325 mg daily to prevent platelet clots as well as coumadin Will have pt. F/U with Dr. Turner at [facility] TEJ CASTELLANOS MD Aug 18, 2017 16:49
--- NOTE | 2017-08-18 17:31 | PDOC ---
PROGRESS NOTES Subjective s/p thrombectomy of left leg, inferior vena cava with congenital hypoplasia and multiple collateral veins present, he is now out of the ICU and stable on cardiac unit. He has no other complaints, eating, feels fine Objective Afebrile General: NAD, A&O Heart: RRR no M Lungs: CTAB Abd: soft and non tender, non distended Ext: improved edema of left leg Vital Signs Vital Signs Date Time Temp Pulse Resp B/P (MAP) Pulse Ox O2 Delivery O2 Flow Rate FiO2 08/18/17 14:07 16 96 Room Air 08/18/17 14:00 90 180/80 (113) 08/18/17 13:30 98.6 98.6 I & O Intake and Output 08/18/17 07:00 Intake Total 2125 ml Output Total 2150 ml Balance -25 ml Intake Oral 700 ml IV Total 1425 ml Output Urine Total 2150 ml Assessment and Plan Status: Acute (1) Deep vein thrombosis (DVT) of left lower extremity -s/p thrombectomy, congenital hypoplasia of inferior vena cava. Discussed with Dr. Ozuna, he will need lifelong anticoagulation and referral back to eventually Status: Acute (2) Varicose veins of lower extremity Status: Acute Problems: Nevaeh DEAN MD Aug 18, 2017 17:31
[2017-08-18] MEDS: FAMOTIDINE 20 MG TABLET. PO SCH (21:06)
[2017-08-19 01:01] LABS: INR 1.3 (0.8-1.1); PROTHROMBIN TIME PATIENT 15.1 SEC (11.7-14.0)
[2017-08-19 03:07] VITALS: BP 125/63
[2017-08-19] MEDS: HEPARIN 25,000UTS/500ML PREMIX 500 ML IV PRN ×2 (04:12→16:19)
[2017-08-19 07:20] VITALS: BP 127/72
[2017-08-19 07:35] LABS: ANTITHROMBIN III SEE SEPARATE REPORT; LUPUS ANTICOAGULANT SEE SEPARATE REPORT; PROTEIN C ACTIVITY SEE SEPARATE REPORT; PROTEIN S ACTIVITY SEE SEPARATE REPORT
[2017-08-19] MEDS: FAMOTIDINE 20 MG TABLET. PO SCH ×2 (08:40→20:39)
[2017-08-19] MEDS: ASPIRIN 325 MG TABLET PO SCH (08:40)
--- NOTE | 2017-08-19 08:40 | RAD ---
11.20.17 1. Left lower extremity venogram 2. TPA thrombolysis and rheolytic thrombectomy left popliteal, superficial femoral, and common femoral veins 3. Catheter directed thrombolysis left popliteal to left common femoral vein Indication: 42-year-old male with acute left lower extremity edema and ultrasound findings of extensive deep venous thrombosis throughout the left lower extremity extending into the iliac veins Discussion: The risks and benefits of the procedure were discussed the patient. Informed consent was obtained. Timeout procedure was performed. The patient was brought to fluoroscopy suite placed in the prone position. The left posterior knee was prepped and draped using maximum sterile barrier technique. Ultrasound guidance and micropuncture technique was used to access the left popliteal vein. Static ultrasound images were saved medical record. A 5 [place] sheath was placed. A venogram was performed demonstrating extensive deep venous thrombosis from the popliteal vein through the common femoral vein and distal external iliac vein. A guidewire and catheter were advanced centrally. Central venograms were performed demonstrating nonvisualization of the left common iliac vein, or IVC. Multiple collateral veins are seen. Very slow drainage through pelvic and paraspinal veins noted. Patient was therefore transferred to the CT scanner and CT venography performed for further evaluation. 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 See report of CT for details. Findings were discussed the patient's vascular surgeon. Decision was made to continue with thrombolysis of the popliteal through common femoral veins to help improve venous drainage in this patient with chronic venous disease. Protocol mechanical thrombolysis using the AngioJet device and approximately 10 mg of TPA was performed. While this improved clot burden, significant residual clot was felt to be present. Thrombolysis was therefore initiated 1 mg an hour of TPA. Transferred to the intensive care unit. The patient had a significant drop in fibrinogen necessitating termination of TPA thrombolysis. The patient was placed on heparin drip. Patient was brought to interventional radiology and a follow-up venogram demonstrated near total recommendation of thrombus from the popliteal, superficial femoral, and common femoral veins. The patient has experienced some decrease in leg swelling. The sheath was removed and manual pressure held to achieve hemostasis. Sterile dressing was applied. No immediate complications were identified. The procedures performed under conscious sedation including continuous cardiopulmonary monitoring via dedicated sedation nurse. Total sedation time, 2 hours Fluoroscopy time: DAY 1: Fluoroscopy TIME: 12.2 MIN Dose area product: 524 Gycm2 Day 2: Fluoroscopy TIME 3.7 MINUTES Dose area product: 176 Gycm2 Impression: 1. Acute deep venous thrombosis throughout the left lower extremity as described 2. 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 Successful thrombolysis of the left popliteal, superficial femoral, and common femoral veins
[2017-08-19 10:34] VITALS: BP 118/77
--- NOTE | 2017-08-19 12:00 | PDOC ---
PROGRESS NOTES Subjective Tolerating heparin, no bleeding issues, INR this am 1.3 after 5 mg warfarin last alicia, left leg feels better, swelling improved, no SOA, no chest pain, normal bowel function Objective Afebrile General: NAD Heart: RRR normal S1, S2 Lungs: CTAB Abd: soft and non tender, normal bowel sounds Ext: compression sock left lower leg, swelling into thigh present Skin: no bruising Vital Signs Vital Signs Date Time Temp Pulse Resp B/P (MAP) Pulse Ox O2 Delivery O2 Flow Rate FiO2 08/19/17 10:34 97.8 77 18 118/77 (91) 99 Room Air 97.8 I & O Intake and Output 08/19/17 07:00 Intake Total 200 ml Output Total 1800 ml Balance -1600 ml Intake Oral 200 ml Output Urine Total 1800 ml # Voids 5 Assessment and Plan Assessment (1) Deep vein thrombosis (DVT) of left lower extremity - s/p thrombectomy, clot extends into vena cava - continue anticoagulation with heparin, warfarin and aspirin, home when INR >2 Status: Acute (3) Varicose veins of lower extremity Status: Acute Problems: Nevaeh DEAN MD Aug 19, 2017 12:00
[2017-08-19 15:11] VITALS: BP 129/76
[2017-08-19] MEDS ORDERED: WARFARIN 6 MG TABLET. PO ONE (16:00)
--- NOTE | 2017-08-19 18:39 | PDOC ---
Provider Note Provider Note Vascular F/U Feeling better. Has ambulated today Tubugrips in place INR 1.3 Imp: Stable after lysis DVT lt leg Plan; Cont. coumadin , consider home on ASA/ coumadin and Lovenox until coumadin theraputic TEJ CASTELLANOS MD Aug 19, 2017 18:39
[2017-08-19 19:21] VITALS: BP 145/86
[2017-08-19 23:25] VITALS: BP 137/87
[2017-08-20] MEDS: HEPARIN 25,000UTS/500ML PREMIX 500 ML IV PRN (01:46)
[2017-08-20 03:30] VITALS: BP 127/83
[2017-08-20 06:04] LABS: INR 1.1 (0.8-1.1); PROTHROMBIN TIME PATIENT 13.4 SEC (11.7-14.0)
[2017-08-20 07:00] VITALS: BP 125/86
--- NOTE | 2017-08-20 08:04 | PDOC ---
Provider Note Provider Note Vascular F/U Pt. up to BR, moving about well Tubigrips on INR 1.3 Imp: Doing well Plan; OK with me to discharge on Lovenox 40mg daily and adjust coumadin as an outpatient. Will leave up to TEJ Herrera MD Aug 20, 2017 08:04
[2017-08-20] MEDS: FAMOTIDINE 20 MG TABLET. PO SCH (09:17)
[2017-08-20] MEDS: ASPIRIN 325 MG TABLET PO SCH (09:17)
--- NOTE | 2017-08-20 10:21 | PDOC ---
PROGRESS NOTES Subjective Subjective Patient is without complaint, denies pain or SOA. Objective Objective Vital Signs Date Time Temp Pulse Resp B/P (MAP) Pulse Ox O2 Delivery O2 Flow Rate FiO2 08/20/17 07:00 98.7 75 16 125/86 (99) 97 Room Air 98.7 Intake and Output 08/20/17 07:00 Intake Total 2245 ml Output Total 1475 ml Balance 770 ml Intake Oral 1700 ml IV Total 545 ml Output Urine Total 1475 ml Physical Exam Abdomen: Normal bowel sounds, Soft, No tenderness Heart: Regular rate Extremities: Other (1+ pitting edema left LE) General: Alert, Oriented X3, No acute distress Lungs: Clear to auscultation Assessment Assessment Problems Medical Problems: (1) Cellulitis of left lower extremity Status: Acute (2) Deep vein thrombosis (DVT) of left lower extremity Status: Acute (3) Varicose veins of lower extremity Status: Acute Plan Plan of Care 1. 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 Stable. Home today on Coumadin and Lovenox bridge per Vascular Surgery recommendation. Continue ASA also. Follow up in our office on Thursday for INR and Coumadin adjustment. Comment Review of Relevant I have reviewed the following items geoff (where applicable) has been applied. Labs Laboratory Tests Test 08/18/17 18:10 08/19/17 00:20 08/19/17 09:00 08/19/17 15:50 Heparin Anti-Xa Act, Unfractionated 0.22 IU/mL (0.30-0.70) 0.26 IU/mL (0.30-0.70) 0.41 IU/mL (0.30-0.70) 0.45 IU/mL (0.30-0.70) Prothrombin Time 15.1 SEC (11.7-14.0) Prothromb Time International Ratio 1.3 (0.8-1.1) Test 08/20/17 05:15 Prothrombin Time 13.4 SEC (11.7-14.0) Prothromb Time International Ratio 1.1 (0.8-1.1) Heparin Anti-Xa Act, Unfractionated 0.48 IU/mL (0.30-0.70) Laboratory Tests Test 08/19/17 15:50 08/20/17 05:15 Heparin Anti-Xa Act, Unfractionated 0.45 IU/mL (0.30-0.70) 0.48 IU/mL (0.30-0.70) Prothrombin Time 13.4 SEC (11.7-14.0) Prothromb Time International Ratio 1.1 (0.8-1.1) Medications Current Medications Diphtheria/ Tetanus/Acell Pertussis (Boostrix) 0.5 ml ONCE ONCE VAX IM Last administered on 08/14/17 17:43; Start 08/14/17 at 17:15; Stop 08/14/17 at 17 :16; Status DC Heparin Sodium (Porcine) (Heparin Sodium) 8,500 unit 1X ONCE IV Last administered on 08/14/17 20:00; Start 08/14/17 at 19:45; Stop 08/14/17 at 19 :46; Status DC Heparin Sodium/ Dextrose 500 ml @ 0 mls/hr CONT PRN IV SEE I/O RECORD Last administered on 08/17/17 12:54; Start 08/14/17 at 19:45; Stop 08/17/17 at 14 :54; Status DC Heparin Sodium (Porcine) (Heparin Sodium) 3,200 unit PRN Q6HRS PRN IV FOR UFH LEVEL LESS THAN 0.2; Start 08/14/17 at 19:45; Stop 08/18/17 at 04:32; Status DC Heparin Sodium (Porcine) (Heparin Sodium) 1,600 unit PRN Q6HRS PRN IV FOR UFH LEVEL 0.2 - 0.29 Last administered on 08/17/17 05:54; Start 08/14/17 at 19:45 ; Stop 08/18/17 at 04:32; Status DC Warfarin Sodium (Coumadin Per Pharmacy) 1 each PRN DAILY PRN MC PER PROTOCOL Last administered on 08/16/17 11:10; Start 08/14/17 at 19:45; Stop 08/18/17 at 04:32; Status DC Warfarin Sodium (Coumadin) 7.5 mg 1X WARF ONCE PO Last administered on 19:56; Start 08/14/17 at 20:00; Stop 08/15/17 at 17:08; Status DC Ondansetron HCl (Zofran) 4 mg PRN Q8HRS PRN IV NAUSEA/VOMITING; Start at 19:45; Stop 08/15/17 at 19:44; Status DC Morphine Sulfate 2 mg PRN Q2HR PRN IV PAIN; Start 08/14/17 at 19:45; Stop at 19:44; Status DC Acetaminophen (Tylenol) 650 mg PRN Q4HRS PRN PO FEVER; Start 08/14/17 at 19:45 ; Stop 08/15/17 at 19:44; Status DC Nitroglycerin (Nitrostat) 0.4 mg PRN Q5MIN PRN SL CHEST PAIN; Start 08/14/17 at 19:45; Stop 08/15/17 at 19:44; Status DC Sodium Chloride 1,000 ml @ 75 mls/hr 1X ONCE IV Last administered on 22:07; Start 08/14/17 at 19:45; Stop 08/15/17 at 09:04; Status DC Iohexol (Omnipaque 300 Mg/ml) 75 ml 1X ONCE IV Last administered on 20:18; Start 08/14/17 at 19:45; Stop 08/14/17 at 19:46; Status DC Info (Do NOT chart on this entry -- for MONITORING) 1 each PRN DAILY PRN MC SEE COMMENTS; Start 08/14/17 at 19:45; Stop 08/16/17 at 19:44; Status DC Warfarin Sodium (Coumadin) 7.5 mg 1X WARF ONCE PO Last administered on 16:17; Start 08/15/17 at 16:00; Stop 08/15/17 at 17:08; Status DC Warfarin Sodium (Coumadin - No Dose Today) 1 each 1X WARF ONCE MC Last administered on 08/16/17 16:00; Start 08/16/17 at 16:00; Stop 08/16/17 at 16 :01; Status DC Lidocaine/Sodium Bicarbonate (Buffered Lidocaine 1%) 20 ml STK-MED ONCE IJ ; Start 08/17/17 at 08:43; Stop 08/17/17 at 08:44; Status DC Heparin Sodium/ Sodium Chloride 1,000 ml @ As Directed STK-MED ONCE .ROUTE ; Start 08/17/17 at 08:43; Stop 08/18/17 at 04:32; Status DC Iohexol (Omnipaque 300 Mg/ml) 100 ml STK-MED ONCE .ROUTE ; Start 08/17/17 at 08 :44; Stop 08/17/17 at 08:45; Status DC Alteplase, Recombinant 10 mg/ Sodium Chloride 100 ml @ 10 mls/hr 1X ONCE IV Last administered on 08/17/17 15:07; Start 08/17/17 at 09:00; Stop 08/18/17 at 04:32; Status DC Fentanyl Citrate (Fentanyl 2ml Vial) 100 mcg STK-MED ONCE .ROUTE ; Start at 08:53; Stop 08/17/17 at 08:54; Status DC Midazolam HCl (Versed) 2 mg STK-MED ONCE .ROUTE ; Start 08/17/17 at 08:53; Stop 08/17/17 at 08:54; Status DC Heparin Sodium/ Sodium Chloride 500 ml @ As Directed STK-MED ONCE .ROUTE ; Start 08/17/17 at 09:18; Stop 08/17/17 at 09:19; Status DC Heparin Sodium (Porcine) (Heparin Sodium) 10,000 unit STK-MED ONCE .ROUTE ; Start 08/17/17 at 09:18; Stop 08/17/17 at 09:19; Status DC Heparin Sodium/ Sodium Chloride 2,000 unit 1X ONCE IART Last administered on 08/17/17 10:16; Start 08/17/17 at 09:45; Stop 08/17/17 at 09:46; Status DC Lidocaine/Sodium Bicarbonate (Buffered Lidocaine 1%) 20 ml 1X ONCE IJ Last administered on 08/17/17 10:15; Start 08/17/17 at 09:45; Stop 08/17/17 at 09 :46; Status DC Midazolam HCl (Versed) 2 mg 1X ONCE IV Last administered on 08/17/17 10:15; Start 08/17/17 at 09:45; Stop 08/17/17 at 09:46; Status DC Fentanyl Citrate (Fentanyl 2ml Vial) 100 mcg 1X ONCE IV Last administered on 08/17/17 10:14; Start 08/17/17 at 09:45; Stop 08/17/17 at 09:46; Status DC Iohexol (Omnipaque 300 Mg/ml) 100 ml 1X ONCE IART Last administered on 10:16; Start 08/17/17 at 09:45; Stop 08/17/17 at 09:46; Status DC Heparin Sodium (Porcine) (Heparin Sodium) 10,000 unit 1X ONCE IV Last administered on 08/17/17 10:14; Start 08/17/17 at 09:45; Stop 08/17/17 at 09 :46; Status DC Info (Do NOT chart on this entry -- for MONITORING) 1 each PRN DAILY PRN MC SEE COMMENTS; Start 08/17/17 at 09:45; Stop 08/19/17 at 09:44; Status Cancel Iohexol (Omnipaque 300 Mg/ml) 100 ml STK-MED ONCE .ROUTE ; Start 08/17/17 at 09 :43; Stop 08/17/17 at 09:44; Status DC Heparin Sodium (Porcine) (Hep Lock Adult) 500 unit STK-MED ONCE IV ; Start at 10:08; Stop 08/17/17 at 10:09; Status DC Influenza Virus Vaccine Quadrival (Fluarix Quad 0738-4915 Syringe) 0.5 ml ONCE ONCE VAX IM ; Start 08/17/17 at 11:00; Stop 08/17/17 at 11:01; Status DC Sodium Chloride 1,000 ml @ 125 mls/hr 1X ONCE IV Last administered on 10:15; Start 08/17/17 at 10:15; Stop 08/17/17 at 18:14; Status DC Heparin Sodium (Porcine) (Hep Lock Adult) 500 unit STK-MED ONCE IV ; Start at 10:12; Stop 08/17/17 at 10:13; Status DC Iohexol (Omnipaque 300 Mg/ml) 100 ml 1X ONCE IV Last administered on 11:02; Start 08/17/17 at 11:00; Stop 08/17/17 at 11:01; Status DC Iohexol (Omnipaque 300 Mg/ml) 25 ml 1X ONCE IV Last administered on 11:02; Start 08/17/17 at 11:00; Stop 08/17/17 at 11:01; Status DC Info (Do NOT chart on this entry -- for MONITORING) 1 each PRN DAILY PRN MC SEE COMMENTS; Start 08/17/17 at 11:00; Stop 08/19/17 at 10:59; Status DC Fentanyl Citrate (Fentanyl 2ml Vial) 50 mcg 1X ONCE IV Last administered on 12:04; Start 08/17/17 at 12:15; Stop 08/17/17 at 12:16; Status DC Iohexol (Omnipaque 300 Mg/ml) 100 ml STK-MED ONCE .ROUTE ; Start 08/17/17 at 13 :19; Stop 08/17/17 at 13:20; Status DC Midazolam HCl (Versed) 5 mg STK-MED ONCE .ROUTE ; Start 08/17/17 at 13:56; Stop 08/17/17 at 13:57; Status DC Fentanyl Citrate (Fentanyl 5ml Vial) 250 mcg STK-MED ONCE .ROUTE ; Start at 13:56; Stop 08/17/17 at 13:57; Status DC Alteplase, Recombinant 25 mg/ Sodium Chloride 250 ml @ 10 mls/hr Q25H IV Last administered on 08/17/17 15:34; Start 08/17/17 at 15:00; Stop 08/17/17 at 15 :35; Status DC Famotidine (Pepcid Vial) 20 mg BID IVP Last administered on 08/18/17 13:07; Start 08/17/17 at 21:00; Stop 08/18/17 at 20:05; Status DC Ondansetron HCl (Zofran) 4 mg PRN Q6HRS PRN IV NAUSEA/VOMITING; Start at 14:45 Oxycodone/ Acetaminophen (Percocet 5/325) 1 tab PRN Q4HRS PRN PO MILD PAIN; Start 08/17/17 at 14:45 Morphine Sulfate 4 mg PRN Q2HR PRN IV MODERATE, SEVERE PAIN Last administered on 08/17/17 15:28; Start 08/17/17 at 14:45 Heparin Sodium/ Dextrose 500 ml @ 0 mls/hr CONT PRN IV SEE I/O RECORD Last administered on 08/17/17 15:37; Start 08/17/17 at 15:00; Stop 08/18/17 at 04 :32; Status DC Midazolam HCl (Versed) 2.5 mg 1X ONCE IV ; Start 08/17/17 at 15:15; Stop at 15:16; Status DC Fentanyl Citrate (Fentanyl 5ml Vial) 100 mcg 1X ONCE IV ; Start 08/17/17 at 15 :15; Stop 08/17/17 at 15:16; Status DC Iohexol (Omnipaque 300 Mg/ml) 40 ml 1X ONCE IART ; Start 08/17/17 at 15:15; Stop 08/17/17 at 15:16; Status DC Oxycodone/ Acetaminophen (Percocet 5/325) 2 tab PRN Q4HRS PRN PO MODERATE PAIN , SEVERE PAIN Last administered on 08/18/17 21:06; Start 08/17/17 at 16:45 Alteplase, Recombinant 25 mg/ Sodium Chloride 250 ml @ 5 mls/hr Q25H IV Last administered on 08/17/17 23:00; Start 08/17/17 at 22:30; Stop 08/18/17 at 00 :14; Status DC Sodium Chloride 250 ml @ 10 mls/hr KVO PRN IV SEE I/O RECORD Last administered on 08/18/17 05:23; Start 08/18/17 at 05:00 Heparin Sodium/ Dextrose 500 ml @ 0 mls/hr CONT PRN IV SEE I/O RECORD Last administered on 08/20/17 01:46; Start 08/18/17 at 04:45 Heparin Sodium (Porcine) (Heparin Sodium) 3,550 unit PRN Q6HRS PRN IV FOR UFH LEVEL LESS THAN 0.2; Start 08/18/17 at 04:45 Heparin Sodium (Porcine) (Heparin Sodium) 1,750 unit PRN Q6HRS PRN IV FOR UFH LEVEL 0.2 - 0.29 Last administered on 08/19/17 03:01; Start 08/18/17 at 04:45 Warfarin Sodium (Coumadin Per Pharmacy) 1 each PRN DAILY PRN MC PER PROTOCOL Last administered on 08/19/17 08:52; Start 08/18/17 at 05:00 Heparin Sodium/ Sodium Chloride 1,000 unit 1X ONCE IART Last administered on 08/18/17 10:47; Start 08/18/17 at 10:45; Stop 08/18/17 at 10:46; Status DC Lidocaine/Sodium Bicarbonate (Buffered Lidocaine 1%) 20 ml 1X ONCE IJ Last administered on 08/18/17 10:47; Start 08/18/17 at 10:45; Stop 08/18/17 at 10 :46; Status DC Iohexol (Omnipaque 300 Mg/ml) 100 ml 1X ONCE IART Last administered on 10:47; Start 08/18/17 at 10:45; Stop 08/18/17 at 10:46; Status DC Warfarin Sodium (Coumadin) 5 mg 1X WARF ONCE PO Last administered on 17:41; Start 08/18/17 at 16:00; Stop 08/18/17 at 16:01; Status DC Aspirin (Jovita Aspirin) 325 mg DAILYWBKFT PO Last administered on 08/20/17 09 :17; Start 08/19/17 at 08:00 Famotidine (Pepcid) 20 mg BID PO Last administered on 08/20/17 09:17; Start 08/18/17 at 21:00 Warfarin Sodium (Coumadin) 6 mg 1X WARF ONCE PO Last administered on 16:37; Start 08/19/17 at 16:00; Stop 08/19/17 at 16:01; Status DC Vitals/I & O Vital Sign - Last 24 Hours 08/19/17 08/19/17 08/19/17 08/19/17 10:34 15:11 19:21 19:30 Temp 97.8 98.4 98.3 97.8 98.4 98.3 Pulse 77 90 83 Resp 18 18 18 B/P (MAP) 118/77 (91) 129/76 (93) 145/86 (105) Pulse Ox 99 97 98 O2 Delivery Room Air Room Air Room Air Room Air 08/19/17 08/20/17 08/20/17 23:25 03:30 07:00 Temp 97.9 98.2 98.7 97.9 98.2 98.7 Pulse 73 79 75 Resp 18 20 16 B/P (MAP) 137/87 (104) 127/83 (98) 125/86 (99) Pulse Ox 97 97 97 O2 Delivery Room Air Room Air Room Air Intake and Output 08/19/17 08/19/17 08/20/17 15:00 23:00 07:00 Intake Total 745 ml 450 ml 1050 ml Output Total 825 ml 650 ml Balance 745 ml -375 ml 400 ml KILLAM,LAYTON A MD Aug 20, 2017 10:21
[2017-08-20] MEDS ORDERED: ASPI325T8 PO (10:24)
[2017-08-20] MEDS ORDERED: ENOX40DI3 SQ (10:24)
[2017-08-20] MEDS ORDERED: WARF6TAB49 PO (10:24)
--- NOTE | 2017-08-20 10:47 | DS ---
DATE OF DISCHARGE: 08/20/2017 CHIEF COMPLAINT: Pain and swelling, left leg. HISTORY OF PRESENT ILLNESS: The patient is a 42-year-old male with some history of DVTs, who presented to the Emergency Room with the above complaint. He reported the onset of pain and swelling in his left leg on the day prior to admission. His symptoms gradually worsened and he came to the Emergency Room. Initial evaluation there included an ultrasound of the left leg, which showed extensive thrombosis within the veins of the leg. Treatment was started and he was admitted for further treatment. HOSPITAL COURSE: The patient was seen in consultation by Vascular Surgery. A CTA of the chest did not show any pulmonary emboli. 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 Multiple large collateral vessels were seen. On 08/17/2017, catheter-directed thrombolysis was performed and was partially successful with a decrease in clot burden in the leg. Vascular Surgery recommended that the patient be started on Coumadin and aspirin and it is anticipated he will need anticoagulation long-term. The patient has been stable during his hospital stay. His blood pressure is within normal limits and his lab is unremarkable with exception of some mildly elevated glucose at times. He was on no home medication prior to admission. The swelling in his leg is improving with elevation and compression. Dr. Ozuna recommends that the patient be discharged home today on a Lovenox bridge and Coumadin daily and the patient is in agreement with this. 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 DISCHARGE MEDICATIONS: Aspirin 325 mg daily, Lovenox 40 mg subcutaneously daily, Coumadin 6 mg p.o. daily. FOLLOWUP: Followup is in our office on Thursday for lab and Coumadin adjustment. The patient received a flu shot and a tetanus shot during his hospital stay. LAYTON MCKINNEY MD DR: TALIA/issac JOB#: [id number] / [id number] AUDI
[2017-08-20 11:00] VITALS: BP 138/91
[2017-08-20] MEDS ORDERED: ENOXAPARIN 40 MG/0.4 ML SYRINGE. SQ SCH (11:00)
[2017-08-20] MEDS ORDERED: WARFARIN 7.5 MG TABLET. PO ONE (12:00)
[2017-08-22 01:09] LABS: PROTHROMBIN GENE MUTATION Negative (.)
== END 2017-08-20 15:55 | disposition home or self-care (01) | DRG 602 ==
LOC: ER 16:46 → 5 NORTH 19:40 → 1 WEST ICU 08-17 10:40 → 2 NORTH 08-18 17:19
PROVIDERS: ADMIT Family Medicine; ATTEND Family Medicine
PROC: 30233M1 Transfusion of Nonautologous Plasma Cryoprecipitate into Peripheral Vein, Percutaneous Approach (ICD-10-PCS; 2017-08-17)
PROC: 3E03317 Introduction of Other Thrombolytic into Peripheral Vein, Percutaneous Approach (ICD-10-PCS; principal; 2017-08-19)
PROC: B51C1ZZ Fluoroscopy of Left Lower Extremity Veins using Low Osmolar Contrast (ICD-10-PCS; 2017-08-19)
PROC: B54CZZA Ultrasonography of Left Lower Extremity Veins, Guidance (ICD-10-PCS; 2017-08-19)
DX: L03.116 Cellulitis of left lower limb (principal); I82.221 Chronic embolism and thrombosis of inferior vena cava; I82.422 Acute embolism and thrombosis of left iliac vein; Q26.8 Other congenital malformations of great veins; I82.432 Acute embolism and thrombosis of left popliteal vein; I82.522 Chronic embolism and thrombosis of left iliac vein; E66.9 Obesity, unspecified; Z68.35 Body mass index [BMI] 35.0-35.9, adult; R73.9 Hyperglycemia, unspecified; N28.9 Disorder of kidney and ureter, unspecified; I83.90 Asymptomatic varicose veins of unspecified lower extremity; Z83.3 Family history of diabetes mellitus; Z79.82 Long term (current) use of aspirin; Z23 Encounter for immunization
CPT/HCPCS: 36005; 36010; 36415; 37212; 37214; 70330; 71275; 74177; 75820; 76937; 80048; 81240; 83090; 84484; 85025; 85027; 85220; 85300; 85302; 85306; 85384; 85520; 85610; 85730; 86850; 86900; 86901; 86927; 87641; 90471; 90715; 93005; 93971; 96374; 99152; 99153; A4215; C1757; C1769; C1892; C1894; J1644; J1650; J2250; J2270; J2997; J3010; J7030; J7050; P9012; Q9967; S0028; 99285-25

== ENCOUNTER 2017-09-14 09:16 | Inpatient (IN) | payer OTHER ==
[~2017-09-14] VITALS: Ht 182.9 cm; Wt 115.0 kg
[~2017-09-14 09:16] MED LIST: ASPI325T8 PO; ENOX40DI3 SQ; WARF5TAB7 PO; WARF6TAB49 PO
--- NOTE | 2017-09-14 10:09 | PHYS DOC ---
Past Medical History Past Medical History: DVT Past Surgical History: Other Additional Past Surgical Histo: L. KNEE DVT Alcohol Use: None Drug Use: None Adult General Chief Complaint Chief Complaint: LOWER EXTREMITY SWELLING HPI HPI Patient is a 42 year old male with a history of DVT's on coumadin presents to the ED complaining of left lower leg swelling/redness. States on 08/23 admission patient had a thrombolysis procedure to remove a clot from his left lower leg. States since then he has developed some swelling and redness. Describes the pain as tight. Rates as 4/10. Denies headache, weakness, abdominal pain, chest pain, shortness of breath, dizziness, syncope or fever. Review of Systems Review of Systems Constitutional: Denies fever or chills [] Eyes: Denies change in visual acuity, redness, or eye pain [] HENT: Denies nasal congestion or sore throat [] Respiratory: Denies cough or shortness of breath [] Cardiovascular: No additional information not addressed in HPI [] GI: Denies abdominal pain, nausea, vomiting, bloody stools or diarrhea [] : Denies dysuria or hematuria [] Musculoskeletal: Denies back pain or joint pain [] Integument: Denies rash or skin lesions [] Neurologic: Denies headache, focal weakness or sensory changes [] Endocrine: Denies polyuria or polydipsia [] All other systems were reviewed and found to be within normal limits, except as documented in this note. Allergies Allergies Allergies Coded Allergies Type Severity Reaction Last Updated Verified No Known Drug Allergies 08/14/17 No Physical Exam Physical Exam Constitutional: Well developed, well nourished, no acute distress, non-toxic appearance. [] HENT: Normocephalic, atraumatic, bilateral external ears normal, oropharynx moist, no oral exudates, nose normal. [] Eyes: PERRLA, EOMI, conjunctiva normal, no discharge. [] Neck: Normal range of motion, no tenderness, supple, no stridor. [] Cardiovascular:Heart rate regular rhythm, no murmur [] Lungs & Thorax: Bilateral breath sounds clear to auscultation [] Abdomen: Bowel sounds normal, soft, no tenderness, no masses, no pulsatile masses. [] Skin: Warm, dry, no erythema, no rash. [] Back: No tenderness, no CVA tenderness. [] Extremities: MODERATE LEFT LOWER LEG SWELLING, ERYTHEMA, AND WARMTH., no cyanosis, no clubbing, ROM intact, no edema. [] Neurologic: Alert and oriented X 3, normal motor function, normal sensory function, no focal deficits noted. [] Psychologic: Affect normal, judgement normal, mood normal. [] Current Patient Data Vital Signs Vital Signs Date Time Temp Pulse Resp B/P (MAP) Pulse Ox O2 Delivery O2 Flow Rate FiO2 09/14/17 11:00 74 16 112/81 (91) 100 09/14/17 10:00 Room Air 09/14/17 09:24 98.1 98.1 Lab Values Laboratory Tests Test 09/14/17 10:15 White Blood Count 7.0 x10^3/uL (4.0-11.0) Red Blood Count 4.44 x10^6/uL (4.30-5.70) Hemoglobin 12.0 g/dL (13.0-17.5) L Hematocrit 36.0 % (39.0-53.0) L Mean Corpuscular Volume 81 fL (79-100) Mean Corpuscular Hemoglobin 27 pg (25-35) Mean Corpuscular Hemoglobin Concent 33 g/dL (31-37) Red Cell Distribution Width 14.7 % (11.5-14.5) H Platelet Count 362 x10^3/uL (140-400) Erythrocyte Sedimentation Rate 45 (0-15) H Prothrombin Time 36.4 SEC (11.7-14.0) H Prothrombin Time INR 4.0 (0.8-1.1) H PTT 44 SEC (24-38) H Sodium Level 141 mmol/L (136-145) Potassium Level 3.9 mmol/L (3.5-5.1) Chloride Level 103 mmol/L (98-107) Carbon Dioxide Level 27 mmol/L (21-32) Anion Gap 11 (6-14) Blood Urea Nitrogen 15 mg/dL (8-26) Creatinine 1.0 mg/dL (0.7-1.3) Estimated GFR (Cockcroft-Gault) 100.1 BUN/Creatinine Ratio 15 (6-20) Glucose Level 99 mg/dL (70-99) Lactic Acid Level 1.0 mmol/L (0.4-2.0) Calcium Level 8.9 mg/dL (8.5-10.1) Total Bilirubin 0.4 mg/dL (0.2-1.0) Aspartate Amino Transferase (AST) 24 U/L (15-37) Alanine Aminotransferase (ALT) 33 U/L (16-63) Alkaline Phosphatase 75 U/L (46-116) C-Reactive Protein, Quantitative 21.4 mg/L (0-3.3) H Total Protein 8.3 g/dL (6.4-8.2) H Albumin 3.6 g/dL (3.4-5.0) Albumin/Globulin Ratio 0.8 (1.0-1.7) L Laboratory Tests 09/14/17 10:15 Laboratory Tests 09/14/17 10:15 Microbiology 09/14/17 Blood Culture - Preliminary, Resulted NO GROWTH AFTER 1 DAY EKG EKG [] Radiology/Procedures Radiology/Procedures PROCEDURE: VENOUS LOWER EXTREMITY LEFT Left lower extremity venous duplex study 09/14/2017 Clinical History: Left leg pain and redness. History of DVT.. Technique: Using a combination of real time ultrasound imaging and color-flow and pulse Doppler imaging techniques along with graded compression and augmentation, duplex evaluation of the deep venous system of the left lower extremity was performed. Multiple images were obtained. Findings: Comparison study is dated 08/23/2017 Occlusive thrombus is seen involving the left popliteal vein. Nonocclusive thrombus is seen involving the distal left superficial femoral vein. The remaining left superficial femoral vein and left common femoral vein are patent. These findings have improved since the previous examination. Impression: DVT is seen involving the left popliteal vein extending to involve the distal left superficial femoral vein.[] PROCEDURE: TIBIA FIBULA LEFT AP and lateral left tibia and fibula radiographs 09/14/2017 Clinical history: Swelling and redness of the left leg. 2 AP and 2 lateral digital radiographs of the left tibia and fibula were obtained. No fracture or dislocation of the left tibia or fibula is seen. No radiopaque foreign body is noted. Soft tissue swelling is seen involving the left leg. No subcutaneous emphysema is noted. There is no radiographic evidence of osteomyelitis. Impression: Soft tissue swelling. No acute osseous abnormality is seen. Course & Med Decision Making Course & Med Decision Making Pertinent Labs and Imaging studies reviewed. (See chart for details) Leg is warm, red and swollen. Pain controlled. Patient INR is 4.0. Will start on Zosyn and Vancomycin. Discussed labs and imaging with patients PCP, Dr. Joel. Agrees to admission and further management of patient. Patient stable for admission. Dragon Disclaimer Dragon Disclaimer This electronic medical record was generated, in whole or in part, using a voice recognition dictation system. Departure Departure Impression: Primary Impression: Deep vein thrombosis (DVT) of left lower extremity Additional Impression: Cellulitis of left lower extremity Disposition: ADMITTED INPATIENT Admitting Physician: Mayelin Dean Condition: STABLE Referrals: Nevaeh DEAN MD (PCP) Problem Qualifiers LARRY LOVE Sep 14, 2017 10:09
--- NOTE | 2017-09-14 10:25 | RAD ---
AP and lateral left tibia and fibula radiographs 09/14/2017 Clinical history: Swelling and redness of the left leg. 2 AP and 2 lateral digital radiographs of the left tibia and fibula were obtained. No fracture or dislocation of the left tibia or fibula is seen. No radiopaque foreign body is noted. Soft tissue swelling is seen involving the left leg. No subcutaneous emphysema is noted. There is no radiographic evidence of osteomyelitis. Impression: Soft tissue swelling. No acute osseous abnormality is seen.
[2017-09-14 10:27] LABS: RED BLOOD COUNT 4.44 x10^6/uL (4.30-5.70); RED CELL DISTRIBUTION WIDTH 14.7 % (11.5-14.5)
[2017-09-14 10:38] LABS: CALCIUM 8.9 mg/dL (8.5-10.1); GFR 100.1; POTASSIUM 3.9 mmol/L (3.5-5.1)
[2017-09-14 10:45] LABS: ALBUMIN 3.6 g/dL (3.4-5.0); ALBUMIN/GLOBULIN RATIO 0.8 (1.0-1.7); C-REACTIVE PROTEIN 21.4 mg/L (0-3.3); TOTAL BILIRUBIN 0.4 mg/dL (0.2-1.0); TOTAL PROTEIN 8.3 g/dL (6.4-8.2)
[2017-09-14 10:48] LABS: PROTHROMBIN TIME PATIENT 36.4 SEC (11.7-14.0)
--- NOTE | 2017-09-14 10:59 | RAD ---
Left lower extremity venous duplex study 09/14/2017 Clinical History: Left leg pain and redness. History of DVT.. Technique: Using a combination of real time ultrasound imaging and color-flow and pulse Doppler imaging techniques along with graded compression and augmentation, duplex evaluation of the deep venous system of the left lower extremity was performed. Multiple images were obtained. Findings: Comparison study is dated 08/23/2017 Occlusive thrombus is seen involving the left popliteal vein. Nonocclusive thrombus is seen involving the distal left superficial femoral vein. The remaining left superficial femoral vein and left common femoral vein are patent. These findings have improved since the previous examination. Impression: DVT is seen involving the left popliteal vein extending to involve the distal left superficial femoral vein.
[2017-09-14] MEDS ORDERED: PIPERACILLIN/TAZOBACTAM 3.375 GM in IV DEXTROSE 5% 50 ML IV ONE (11:15)
[2017-09-14] MEDS ORDERED: VANCOMYCIN 2 GM in IV NORMAL SALINE 500ML BAG 500 ML IV ONE (11:15)
[2017-09-14] MEDS ORDERED: PIPERACILLIN/TAZO IV Push 3.375 GM VIAL. IVP ONE (11:15)
[2017-09-14] MEDS ORDERED: fentaNYL PF VIAL 100 MCG/2 ML VIAL IV PRN (11:30)
[2017-09-14] MEDS ORDERED: ACETAMINOPHEN 325 MG TABLET. PO PRN (11:30)
[2017-09-14] MEDS ORDERED: ONDANSETRON PF 4 MG/2 ML VIAL. IV PRN (11:30)
[2017-09-14 12:20] VITALS: BP 136/80
[2017-09-14] MEDS ORDERED: WARF-78 PO (12:46)
[2017-09-14 15:01] VITALS: BP 138/82
[2017-09-14] MEDS: ASPIRIN 325 MG TABLET PO SCH (16:27)
--- NOTE | 2017-09-14 17:56 | PDOC ---
Provider Note Provider Note H&P dictated Cellulitis of LLE with popliteal DVT Nevaeh DEAN MD Sep 14, 2017 17:56
[2017-09-14] MEDS ORDERED: PIP/TAZO PER PHARMACY MC PRN (18:00)
[2017-09-14] MEDS: WARFARIN 4 MG TABLET. PO SCH (18:00)
[2017-09-14] MEDS: PIPERACILLIN/TAZO IV Push 3.375 GM VIAL. IVP SCH ×2 (18:30→23:19)
--- NOTE | 2017-09-14 18:30 | HP ---
ADMIT DATE: 09/14/2017 ADMISSION DIAGNOSIS: Cellulitis, left leg. HISTORY OF PRESENT ILLNESS: This is a 42-year-old black male who has had DVT of the left leg with thrombolytic intervention done twice in the last several weeks who has been doing well at home on warfarin. He put a compression sock over his leg a couple of nights ago and left it on during the day and when he took it off, his leg was red and hot. That redness and heat persisted today and caused him to come to the Emergency Room where he was diagnosed with cellulitis and admitted on IV antibiotics. He has not been febrile. His white count was normal, but his C-reactive protein is high at 21.4. Sed rate is high at 45. He is at therapeutic on his warfarin, supratherapeutic actually with an INR of 4, PT of 36.4 and PTT of 44. Lower extremity ultrasound shows a DVT in the left popliteal vein extending to involve the distal left superficial femoral vein, but improved since prior exam. There is also nonocclusive thrombus in the distal left superficial femoral vein, but the left common femoral vein is patent. 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 HOME MEDICATIONS: Include warfarin 10 mg daily and aspirin 325 mg daily. ALLERGIES: He has no known drug allergies. FAMILY HISTORY: Noncontributory. SOCIAL HISTORY: He does not smoke. REVIEW OF SYSTEMS: No chest pain or palpitations. No cough or shortness of breath. No acid reflux, nausea, vomiting, diarrhea, constipation, no bleeding or bruising. No musculoskeletal pain other than the left leg swelling. SKIN: He has got several healing incisions in the left posterior knee, none of them appear infected. PHYSICAL EXAMINATION: VITAL SIGNS: He is afebrile. Heart rate is regular. Blood pressures ranged from 118/74-143/84 room air oxygen saturation at 99%-100%. GENERAL: His left eye has poor vision. HEENT: Otherwise, unremarkable. NECK: Supple. CARDIOVASCULAR: Heart regular rate and rhythm without murmur. LUNGS: Clear to auscultation. ABDOMEN: Obese, soft, nondistended, nontender. EXTREMITIES: Left leg, he says the redness has already improved after his initial dose of IV antibiotics. There is swelling of the left lower leg below the knee with some increased warmth, but not a lot of redness at this point. The incision scars behind his left knee are healing nicely without sign of infection. I do not palpate any inguinal lymph nodes. I do not notice any ulcerations on his foot or heel. LABORATORY STUDIES: INR 4, white count 7, hemoglobin 12, platelets 362. Sed rate 45. Electrolytes are normal. C-reactive protein 21.4. Lactic acid 1. Tibia, fibula x-ray shows some soft tissue swelling, but no bony abnormalities. Lower extremity ultrasound on the left shows DVT involving left popliteal vein extending to the left distal superficial femoral vein. ASSESSMENT: 1. Cellulitis to the left leg. 2. Nonocclusive thrombus in the left superficial femoral vein with patency of the left common femoral vein, but deep vein thrombosis in the left popliteal vein. PLAN: He is admitted on IV Zosyn 3.375 mg. He has received 1 dose so far. Vancomycin 2 grams x 1. We will continue with warfarin, decrease his dose to 8 mg, continue his daily aspirin 325 mg. We will consult ID and Hematology. I am not sure if we need to consider this or warfarin failure though. W Deborah DEAN MD DR: SIMONE/issac JOB#: [id number] / [id number]
--- NOTE | 2017-09-14 18:39 | PDOC2 ---
CONSULT Date of Consult Date of Consult DATE: 09/14/17 TIME: 18:32 Past Medical History Cardiovascular: No pertinent hx Pulmonary: No pertinent hx GI: No pertinent hx Heme/Onc: No pertinent hx Hepatobiliary: No pertinent hx Psych: No pertinent hx Rheumatologic: No pertinent hx Infectious disease: No pertinent hx Renal/: No pertinent hx Endocrine: No pertinent hx Past Surgical History Past Surgical History: Other Family History Family History: Diabetes Social History ALCOHOL: occassional Drugs: None Lives: with Family Current Problem List Problem List Problems Medical Problems: (1) Cellulitis of left lower extremity Status: Acute (2) Deep vein thrombosis (DVT) of left lower extremity Status: Acute Current Medications Current Medications Current Medications Piperacillin Sod/ Tazobactam Sod 3.375 gm/Dextrose 50 ml @ 100 mls/hr 1X ONCE IV ; Start 09/14/17 at 11:15; Stop 09/14/17 at 11:44; Status UNV Vancomycin HCl 2 gm/Sodium Chloride 500 ml @ 250 mls/hr 1X ONCE IV Last administered on 09/14/17 11:35; Start 09/14/17 at 11:15; Stop 09/14/17 at 13 :14; Status DC Piperacillin Sod/ Tazobactam Sod (Zosyn) 3.375 gm 1X ONCE IVP Last administered on 09/14/17 11:25; Start 09/14/17 at 11:15; Stop 09/14/17 at 11 :16; Status DC Ondansetron HCl (Zofran) 4 mg PRN Q8HRS PRN IV NAUSEA/VOMITING; Start at 11:30; Stop 09/15/17 at 11:29 Fentanyl Citrate (Fentanyl 2ml Vial) 50 mcg PRN Q2HR PRN IV PAIN; Start at 11:30; Stop 09/15/17 at 11:29 Acetaminophen (Tylenol) 650 mg PRN Q4HRS PRN PO FEVER; Start 09/14/17 at 11:30 ; Stop 09/15/17 at 11:29 Aspirin (Jovita Aspirin) 325 mg DAILYWBKFT PO Last administered on 09/14/17 16 :27; Start 09/14/17 at 15:30 Warfarin Sodium (Coumadin) 12 mg DAILY16 PO ; Start 09/15/17 at 16:00; Status Cancel Warfarin Sodium (Coumadin Per Physician) 1 each PRN DAILY PRN MC SEE COMMENTS; Start 09/14/17 at 15:15 Warfarin Sodium (Coumadin) 8 mg DAILY16 PO Last administered on 09/14/17t 18: 00; Start 09/14/17 at 18:00 Piperacillin Sod/ Tazobactam Sod (Zosyn Per Pharmacy) 1 each PRN DAILY PRN MC SEE COMMENTS; Start 09/14/17 at 18:00 Vancomycin HCl (Vanco Per Pharmacy) 1 each PRN DAILY PRN MC SEE COMMENTS; Start 09/14/17 at 18:00 Piperacillin Sod/ Tazobactam Sod (Zosyn) 3.375 gm Q6HRS IVP ; Start 09/14/17 at 18:30 Active Scripts Active Aspirin 325 Mg Tablet 325 Mg PO DAILYWBKFT 30 Days Reported Coumadin (Warfarin Sodium) 5 Mg Tablet 1 Tab PO BID Allergies Allergies: Coded Allergies: No Known Drug Allergies (Unverified , 08/14/17) Vitals VITALS Vital Signs Date Time Temp Pulse Resp B/P (MAP) Pulse Ox O2 Delivery O2 Flow Rate FiO2 09/14/17 15:01 97.7 78 18 138/82 (100) 100 Room Air 97.7 Labs Labs Laboratory Tests Test 09/14/17 10:15 White Blood Count 7.0 x10^3/uL (4.0-11.0) Red Blood Count 4.44 x10^6/uL (4.30-5.70) Hemoglobin 12.0 g/dL (13.0-17.5) Hematocrit 36.0 % (39.0-53.0) Mean Corpuscular Volume 81 fL (79-100) Mean Corpuscular Hemoglobin 27 pg (25-35) Mean Corpuscular Hemoglobin Concent 33 g/dL (31-37) Red Cell Distribution Width 14.7 % (11.5-14.5) Platelet Count 362 x10^3/uL (140-400) Erythrocyte Sedimentation Rate 45 (0-15) Prothrombin Time 36.4 SEC (11.7-14.0) Prothromb Time International Ratio 4.0 (0.8-1.1) Activated Partial Thromboplast Time 44 SEC (24-38) Sodium Level 141 mmol/L (136-145) Potassium Level 3.9 mmol/L (3.5-5.1) Chloride Level 103 mmol/L (98-107) Carbon Dioxide Level 27 mmol/L (21-32) Anion Gap 11 (6-14) Blood Urea Nitrogen 15 mg/dL (8-26) Creatinine 1.0 mg/dL (0.7-1.3) Estimated GFR (Cockcroft-Gault) 100.1 BUN/Creatinine Ratio 15 (6-20) Glucose Level 99 mg/dL (70-99) Lactic Acid Level 1.0 mmol/L (0.4-2.0) Calcium Level 8.9 mg/dL (8.5-10.1) Total Bilirubin 0.4 mg/dL (0.2-1.0) Aspartate Amino Transf (AST/SGOT) 24 U/L (15-37) Alanine Aminotransferase (ALT/SGPT) 33 U/L (16-63) Alkaline Phosphatase 75 U/L (46-116) C-Reactive Protein, Quantitative 21.4 mg/L (0-3.3) Total Protein 8.3 g/dL (6.4-8.2) Albumin 3.6 g/dL (3.4-5.0) Albumin/Globulin Ratio 0.8 (1.0-1.7) Laboratory Tests Test 09/14/17 10:15 White Blood Count 7.0 x10^3/uL (4.0-11.0) Red Blood Count 4.44 x10^6/uL (4.30-5.70) Hemoglobin 12.0 g/dL (13.0-17.5) Hematocrit 36.0 % (39.0-53.0) Mean Corpuscular Volume 81 fL (79-100) Mean Corpuscular Hemoglobin 27 pg (25-35) Mean Corpuscular Hemoglobin Concent 33 g/dL (31-37) Red Cell Distribution Width 14.7 % (11.5-14.5) Platelet Count 362 x10^3/uL (140-400) Erythrocyte Sedimentation Rate 45 (0-15) Prothrombin Time 36.4 SEC (11.7-14.0) Prothromb Time International Ratio 4.0 (0.8-1.1) Activated Partial Thromboplast Time 44 SEC (24-38) Sodium Level 141 mmol/L (136-145) Potassium Level 3.9 mmol/L (3.5-5.1) Chloride Level 103 mmol/L (98-107) Carbon Dioxide Level 27 mmol/L (21-32) Anion Gap 11 (6-14) Blood Urea Nitrogen 15 mg/dL (8-26) Creatinine 1.0 mg/dL (0.7-1.3) Estimated GFR (Cockcroft-Gault) 100.1 BUN/Creatinine Ratio 15 (6-20) Glucose Level 99 mg/dL (70-99) Lactic Acid Level 1.0 mmol/L (0.4-2.0) Calcium Level 8.9 mg/dL (8.5-10.1) Total Bilirubin 0.4 mg/dL (0.2-1.0) Aspartate Amino Transf (AST/SGOT) 24 U/L (15-37) Alanine Aminotransferase (ALT/SGPT) 33 U/L (16-63) Alkaline Phosphatase 75 U/L (46-116) C-Reactive Protein, Quantitative 21.4 mg/L (0-3.3) Total Protein 8.3 g/dL (6.4-8.2) Albumin 3.6 g/dL (3.4-5.0) Albumin/Globulin Ratio 0.8 (1.0-1.7) Assessment/Plan Assessment/Plan DATE OF CONSULTATION: 09/14/2017 CONSULTATION REQUESTED BY: Dr. Valladares. REASON FOR CONSULTATION: DVT, left lower extremity and cellulitis. HISTORY OF PRESENT ILLNESS: The patient is a 42-year-old gentleman who was diagnosed with DVT of the left lower extremity on 08/14/2017. He reports having had left leg pain and swelling for 2 weeks' duration prior to the diagnosis. He underwent venous Doppler of the left lower extremity on 08/14/2017 that revealed extensive left lower extremity deep vein thrombosis. He was started on Lovenox and transitioned to warfarin. 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 Multiple large collateral vessels were also noted. Vascular Surgery was also consulted. CT angiogram of the chest was negative for pulmonary embolism. On 08/17/2017, catheter-directed thrombolysis was performed that was partially successful with decrease in the clot burden. Vascular Surgery recommended Coumadin and aspirin and long-term anticoagulation. He was discharged on 08/20/2017 on aspirin 325 mg daily, Lovenox 40 mg subcutaneous daily and Coumadin 6 mg p.o. daily. He was admitted again on 08/23/2017 with worsening left leg pain and swelling. His INR was subtherapeutic at 1.5. Interventional Radiology was consulted. He underwent thrombolysis on 08/25/2017. He was placed on heparin and transitioned to coumadin. He was admitted 09/14/17 for cellulitis of LLE. INR 4.0. Venous Doppler on 09/14/2017 Occlusive thrombus is seen involving the left popliteal vein. Nonocclusive thrombus is seen involving the distal left superficial femoral vein. The remaining left superficial femoral vein and left common femoral vein are patent. These findings have improved since the previous examination. PAST MEDICAL HISTORY: DVT, diagnosed on 08/14/2017. He also reports having had a superficial vein thrombosis in the left calf region in 2013 and he was recommended aspirin, but no anticoagulation at that time. FAMILY HISTORY: Positive for diabetes. SOCIAL HISTORY: No alcohol abuse, no smoking. REVIEW OF SYSTEMS: A 12-point review of system was performed. Pertinent positives are mentioned in the history of present illness. Rest of the system review is negative. PHYSICAL EXAMINATION: GENERAL APPEARANCE: The patient is a 42-year-old gentleman who is in no acute cardiorespiratory distress. VITAL SIGNS: reviewed. HEAD: Atraumatic, normocephalic. EYES: No icterus. NECK: Supple. CHEST: Bilaterally symmetrical. No crepitations or rhonchi heard. HEART: S1, S2 normal. ABDOMEN: Soft, nontender. CENTRAL NERVOUS SYSTEM: No focal deficits. LYMPHATICS: No lymphadenopathy. SKIN: No rashes. PSYCHOLOGIC: Mood and affect are appropriate. MUSCULOSKELETAL: No joint effusions. LABORATORY DATA: INR on 09/14/17 is 4.0. IMPRESSION AND PLAN: 1. Deep venous thrombosis of the left lower extremity, diagnosed on 08/14/2017 status post thrombolysis and a followup venous Doppler on 08/23/2017 revealed persistent extensive deep venous thrombosis of the left lower extremity. He underwent thrombolysis on 08/25/2017. His INR was subtherapeutic at the time of admission and hence I do not suspect Coumadin failure. Hypercoag w/u is normal. Hypercoagulable state workup done on 08/16/2017 reveals normal factor V Leiden, no prothrombin gene mutation, normal protein C and protein S and Antithrombin III levels. No evidence of lupus anticoagulant. Flow cytomery for PNH is negative. Venous Doppler on 09/14/2017 Occlusive thrombus is seen involving the left popliteal vein. Nonocclusive thrombus is seen involving the distal left superficial femoral vein. The remaining left superficial femoral vein and left common femoral vein are patent. These findings have improved since the previous examination. I agree with anticoagulation with warfarin. 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 Multiple large collateral vessels are noted. I reviewed the risks and benefits of anticoagulation and he understands and agrees with the plan. 2. Cellulitis of LLE, new, agree with abx per Dr Valladares. MOSES MOHAN MD Sep 14, 2017 18:39
[2017-09-14 19:00] VITALS: BP 133/83
[2017-09-14] MEDS: VANCOMYCIN PER PHARMACY MC PRN ×2 (19:57→20:04)
[2017-09-14] MEDS ORDERED: VANCOMYCIN 1.75 GM in IV DEXTROSE 5 %-0.2 % NACL 500 ML IV SCH (20:00)
[2017-09-14] MEDS ORDERED: VANCOMYCIN 2 GM in IV DEXTROSE 5 %-0.2 % NACL 500 ML IV SCH (20:00)
[2017-09-14] MEDS: VANCOMYCIN 1.75 GM in IV DEXTROSE 5 %-0.45 % NACL 500 ML IV SCH (20:58)
[2017-09-14 22:56] VITALS: BP 116/68
[2017-09-15 03:03] VITALS: BP 103/69
[2017-09-15] MEDS: VANCOMYCIN 1.75 GM in IV DEXTROSE 5 %-0.45 % NACL 500 ML IV SCH ×2 (04:03→12:08)
[2017-09-15] MEDS: PIPERACILLIN/TAZO IV Push 3.375 GM VIAL. IVP SCH ×2 (06:06→12:07)
[2017-09-15 06:28] LABS: BASO # 0.1 x10^3/uL (0.0-0.2); BASO % 1 % (0-3); EOS % 8 % (0-3); HEMATOCRIT 32.9 % (39.0-53.0); HEMOGLOBIN 10.7 g/dL (13.0-17.5); LYMPH # 0.9 x10^3/uL (1.0-4.8); LYMPH % 12 % (24-48); MEAN CORPUSCULAR HEMOGLOBIN 26 pg (25-35); MEAN CORPUSCULAR HGB CONC 33 g/dL (31-37); MEAN CORPUSCULAR VOLUME 81 fL (79-100); MONO % 8 % (0-9); NEUT % 72 % (31-73); PLATELET COUNT 302 x10^3/uL (140-400); RED BLOOD COUNT 4.08 x10^6/uL (4.30-5.70); RED CELL DISTRIBUTION WIDTH 14.3 % (11.5-14.5); WHITE BLOOD COUNT 7.5 x10^3/uL (4.0-11.0)
[2017-09-15 06:37] LABS: ALBUMIN 3.1 g/dL (3.4-5.0); ALBUMIN/GLOBULIN RATIO 0.7 (1.0-1.7); CALCIUM 8.5 mg/dL (8.5-10.1); CREATININE 1.1 mg/dL (0.7-1.3); GFR 89.7; POTASSIUM 3.7 mmol/L (3.5-5.1); TOTAL BILIRUBIN 0.3 mg/dL (0.2-1.0); TOTAL PROTEIN 7.4 g/dL (6.4-8.2)
[2017-09-15 06:50] LABS: INR 3.5 (0.8-1.1)
[2017-09-15 07:00] VITALS: BP 121/60
--- NOTE | 2017-09-15 08:53 | PDOC ---
PROGRESS NOTES Subjective Subjective HPI -f/u of DVT/cellulitis ROS - erythema improving, feels better Objective Objective Vital Signs Date Time Temp Pulse Resp B/P (MAP) Pulse Ox O2 Delivery O2 Flow Rate FiO2 09/15/17 07:00 98.2 61 22 121/60 (80) 98 Room Air 98.2 Intake and Output 09/15/17 07:00 Intake Total 2250 ml Output Total 700 ml Balance 1550 ml Intake Oral 2000 ml IV Total 250 ml Output Urine Total 700 ml # Voids 1 Physical Exam Heart: Normal S1, Normal S2 General: Alert, Oriented X3 Lungs: Clear to auscultation Neuro: Normal speech Psych/Mental Status: Mental status NL Assessment Assessment Problems Medical Problems: (1) Cellulitis of left lower extremity Status: Acute (2) Deep vein thrombosis (DVT) of left lower extremity Status: Acute IMPRESSION AND PLAN: 1. Deep venous thrombosis of the left lower extremity, diagnosed on 08/14/2017 status post thrombolysis and a followup venous Doppler on 08/23/2017 revealed persistent extensive deep venous thrombosis of the left lower extremity. He underwent thrombolysis on 08/25/2017. His INR was subtherapeutic at the time of admission and hence I do not suspect Coumadin failure. Hypercoag w/u is normal. Hypercoagulable state workup done on 08/16/2017 reveals normal factor V Leiden, no prothrombin gene mutation, normal protein C and protein S and Antithrombin III levels. No evidence of lupus anticoagulant. Flow cytomery for PNH is negative. Venous Doppler on 09/14/2017 Occlusive thrombus is seen involving the left popliteal vein. Nonocclusive thrombus is seen involving the distal left superficial femoral vein. The remaining left superficial femoral vein and left common femoral vein are patent. These findings have improved since the previous examination. I agree with anticoagulation with warfarin. 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 Multiple large collateral vessels are noted. I reviewed the risks and benefits of anticoagulation and he understands and agrees with the plan. I d/w Dr Valladares INR 3.5 2. Cellulitis of LLE, new, agree with abx per Dr Valladares. Comment Review of Relevant I have reviewed the following items geoff (where applicable) has been applied. Labs Laboratory Tests Test 09/14/17 10:15 12/19/17 05:00 White Blood Count 7.0 x10^3/uL (4.0-11.0) 7.5 x10^3/uL (4.0-11.0) Red Blood Count 4.44 x10^6/uL (4.30-5.70) 4.08 x10^6/uL (4.30-5.70) Hemoglobin 12.0 g/dL (13.0-17.5) 10.7 g/dL (13.0-17.5) Hematocrit 36.0 % (39.0-53.0) 32.9 % (39.0-53.0) Mean Corpuscular Volume 81 fL (79-100) 81 fL (79-100) Mean Corpuscular Hemoglobin 27 pg (25-35) 26 pg (25-35) Mean Corpuscular Hemoglobin Concent 33 g/dL (31-37) 33 g/dL (31-37) Red Cell Distribution Width 14.7 % (11.5-14.5) 14.3 % (11.5-14.5) Platelet Count 362 x10^3/uL (140-400) 302 x10^3/uL (140-400) Erythrocyte Sedimentation Rate 45 (0-15) Prothrombin Time 36.4 SEC (11.7-14.0) 33.0 SEC (11.7-14.0) Prothromb Time International Ratio 4.0 (0.8-1.1) 3.5 (0.8-1.1) Activated Partial Thromboplast Time 44 SEC (24-38) Sodium Level 141 mmol/L (136-145) 141 mmol/L (136-145) Potassium Level 3.9 mmol/L (3.5-5.1) 3.7 mmol/L (3.5-5.1) Chloride Level 103 mmol/L (98-107) 104 mmol/L (98-107) Carbon Dioxide Level 27 mmol/L (21-32) 27 mmol/L (21-32) Anion Gap 11 (6-14) 10 (6-14) Blood Urea Nitrogen 15 mg/dL (8-26) 11 mg/dL (8-26) Creatinine 1.0 mg/dL (0.7-1.3) 1.1 mg/dL (0.7-1.3) Estimated GFR (Cockcroft-Gault) 100.1 89.7 BUN/Creatinine Ratio 15 (6-20) 10 (6-20) Glucose Level 99 mg/dL (70-99) 119 mg/dL (70-99) Lactic Acid Level 1.0 mmol/L (0.4-2.0) Calcium Level 8.9 mg/dL (8.5-10.1) 8.5 mg/dL (8.5-10.1) Total Bilirubin 0.4 mg/dL (0.2-1.0) 0.3 mg/dL (0.2-1.0) Aspartate Amino Transf (AST/SGOT) 24 U/L (15-37) 19 U/L (15-37) Alanine Aminotransferase (ALT/SGPT) 33 U/L (16-63) 28 U/L (16-63) Alkaline Phosphatase 75 U/L (46-116) 63 U/L (46-116) C-Reactive Protein, Quantitative 21.4 mg/L (0-3.3) Total Protein 8.3 g/dL (6.4-8.2) 7.4 g/dL (6.4-8.2) Albumin 3.6 g/dL (3.4-5.0) 3.1 g/dL (3.4-5.0) Albumin/Globulin Ratio 0.8 (1.0-1.7) 0.7 (1.0-1.7) Neutrophils (%) (Auto) 72 % (31-73) Lymphocytes (%) (Auto) 12 % (24-48) Monocytes (%) (Auto) 8 % (0-9) Eosinophils (%) (Auto) 8 % (0-3) Basophils (%) (Auto) 1 % (0-3) Neutrophils # (Auto) 5.4 x10^3uL (1.8-7.7) Lymphocytes # (Auto) 0.9 x10^3/uL (1.0-4.8) Monocytes # (Auto) 0.6 x10^3/uL (0.0-1.1) Eosinophils # (Auto) 0.6 x10^3/uL (0.0-0.7) Basophils # (Auto) 0.1 x10^3/uL (0.0-0.2) Laboratory Tests Test 09/14/17 10:15 09/15/17 05:00 White Blood Count 7.0 x10^3/uL (4.0-11.0) 7.5 x10^3/uL (4.0-11.0) Red Blood Count 4.44 x10^6/uL (4.30-5.70) 4.08 x10^6/uL (4.30-5.70) Hemoglobin 12.0 g/dL (13.0-17.5) 10.7 g/dL (13.0-17.5) Hematocrit 36.0 % (39.0-53.0) 32.9 % (39.0-53.0) Mean Corpuscular Volume 81 fL (79-100) 81 fL (79-100) Mean Corpuscular Hemoglobin 27 pg (25-35) 26 pg (25-35) Mean Corpuscular Hemoglobin Concent 33 g/dL (31-37) 33 g/dL (31-37) Red Cell Distribution Width 14.7 % (11.5-14.5) 14.3 % (11.5-14.5) Platelet Count 362 x10^3/uL (140-400) 302 x10^3/uL (140-400) Erythrocyte Sedimentation Rate 45 (0-15) Prothrombin Time 36.4 SEC (11.7-14.0) 33.0 SEC (11.7-14.0) Prothromb Time International Ratio 4.0 (0.8-1.1) 3.5 (0.8-1.1) Activated Partial Thromboplast Time 44 SEC (24-38) Sodium Level 141 mmol/L (136-145) 141 mmol/L (136-145) Potassium Level 3.9 mmol/L (3.5-5.1) 3.7 mmol/L (3.5-5.1) Chloride Level 103 mmol/L (98-107) 104 mmol/L (98-107) Carbon Dioxide Level 27 mmol/L (21-32) 27 mmol/L (21-32) Anion Gap 11 (6-14) 10 (6-14) Blood Urea Nitrogen 15 mg/dL (8-26) 11 mg/dL (8-26) Creatinine 1.0 mg/dL (0.7-1.3) 1.1 mg/dL (0.7-1.3) Estimated GFR (Cockcroft-Gault) 100.1 89.7 BUN/Creatinine Ratio 15 (6-20) 10 (6-20) Glucose Level 99 mg/dL (70-99) 119 mg/dL (70-99) Lactic Acid Level 1.0 mmol/L (0.4-2.0) Calcium Level 8.9 mg/dL (8.5-10.1) 8.5 mg/dL (8.5-10.1) Total Bilirubin 0.4 mg/dL (0.2-1.0) 0.3 mg/dL (0.2-1.0) Aspartate Amino Transf (AST/SGOT) 24 U/L (15-37) 19 U/L (15-37) Alanine Aminotransferase (ALT/SGPT) 33 U/L (16-63) 28 U/L (16-63) Alkaline Phosphatase 75 U/L (46-116) 63 U/L (46-116) C-Reactive Protein, Quantitative 21.4 mg/L (0-3.3) Total Protein 8.3 g/dL (6.4-8.2) 7.4 g/dL (6.4-8.2) Albumin 3.6 g/dL (3.4-5.0) 3.1 g/dL (3.4-5.0) Albumin/Globulin Ratio 0.8 (1.0-1.7) 0.7 (1.0-1.7) Neutrophils (%) (Auto) 72 % (31-73) Lymphocytes (%) (Auto) 12 % (24-48) Monocytes (%) (Auto) 8 % (0-9) Eosinophils (%) (Auto) 8 % (0-3) Basophils (%) (Auto) 1 % (0-3) Neutrophils # (Auto) 5.4 x10^3uL (1.8-7.7) Lymphocytes # (Auto) 0.9 x10^3/uL (1.0-4.8) Monocytes # (Auto) 0.6 x10^3/uL (0.0-1.1) Eosinophils # (Auto) 0.6 x10^3/uL (0.0-0.7) Basophils # (Auto) 0.1 x10^3/uL (0.0-0.2) Medications Current Medications Piperacillin Sod/ Tazobactam Sod 3.375 gm/Dextrose 50 ml @ 100 mls/hr 1X ONCE IV ; Start 09/14/17 at 11:15; Stop 09/14/17 at 11:44; Status UNV Vancomycin HCl 2 gm/Sodium Chloride 500 ml @ 250 mls/hr 1X ONCE IV Last administered on 09/14/17 11:35; Start 09/14/17 at 11:15; Stop 09/14/17 at 13 :14; Status DC Piperacillin Sod/ Tazobactam Sod (Zosyn) 3.375 gm 1X ONCE IVP Last administered on 09/14/17 11:25; Start 09/14/17 at 11:15; Stop 09/14/17 at 11 :16; Status DC Ondansetron HCl (Zofran) 4 mg PRN Q8HRS PRN IV NAUSEA/VOMITING; Start at 11:30; Stop 09/15/17 at 11:29 Fentanyl Citrate (Fentanyl 2ml Vial) 50 mcg PRN Q2HR PRN IV PAIN; Start at 11:30; Stop 09/15/17 at 11:29 Acetaminophen (Tylenol) 650 mg PRN Q4HRS PRN PO FEVER; Start 09/14/17 at 11:30 ; Stop 09/15/17 at 11:29 Aspirin (Jovita Aspirin) 325 mg DAILYWBKFT PO Last administered on 09/14/17 16 :27; Start 09/14/17 at 15:30 Warfarin Sodium (Coumadin) 12 mg DAILY16 PO ; Start 09/15/17 at 16:00; Status Cancel Warfarin Sodium (Coumadin Per Physician) 1 each PRN DAILY PRN MC SEE COMMENTS; Start 09/14/17 at 15:15 Warfarin Sodium (Coumadin) 8 mg DAILY16 PO Last administered on 09/14/17 18: 00; Start 09/14/17 at 18:00 Piperacillin Sod/ Tazobactam Sod (Zosyn Per Pharmacy) 1 each PRN DAILY PRN MC SEE COMMENTS; Start 09/14/17 at 18:00 Vancomycin HCl (Vanco Per Pharmacy) 1 each PRN DAILY PRN MC SEE COMMENTS Last administered on 09/14/17 20:04; Start 09/14/17 at 18:00 Piperacillin Sod/ Tazobactam Sod (Zosyn) 3.375 gm Q6HRS IVP Last administered on 09/15/17 06:06; Start 09/14/17 at 18:30 Vancomycin HCl 2 gm/Dextrose/ Sodium Chloride 500 ml @ 250 mls/hr Q8H IV ; Start 09/14/17 at 20:00; Stop 09/14/17 at 20:00; Status DC Vancomycin HCl 1 each 1X ONCE MC ; Start 09/15/17 at 10:30; Stop 09/15/17 at 10:31 Vancomycin HCl 1.75 gm/Dextrose/ Sodium Chloride 500 ml @ 250 mls/hr Q8H IV ; Start 09/14/17 at 20:00; Stop 09/14/17 at 20:01; Status DC Vancomycin HCl 1.75 gm/Dextrose/ Sodium Chloride 500 ml @ 250 mls/hr Q8H IV Last administered on 09/15/17 04:03; Start 09/14/17 at 20:00 Active Scripts Active Aspirin 325 Mg Tablet 325 Mg PO DAILYWBKFT 30 Days Reported Coumadin (Warfarin Sodium) 5 Mg Tablet 1 Tab PO BID Vitals/I & O Vital Sign - Last 24 Hours 09/14/17 09/14/17 09/14/17 09/14/17 09:24 10:00 10:30 11:00 Temp 98.1 98.1 Pulse 91 86 76 74 Resp 16 16 B/P (MAP) 141/92 (108) 126/86 (99) 118/74 (89) 112/81 (91) Pulse Ox 100 100 98 100 O2 Delivery Room Air Room Air 09/14/17 09/14/17 09/14/17 09/14/17 11:30 12:20 14:09 15:01 Temp 97.9 97.7 97.9 97.7 Pulse 90 77 78 Resp B/P (MAP) 143/84 (103) 136/80 (98) 138/82 (100) Pulse Ox 100 99 100 O2 Delivery Room Air Room Air Room Air Room Air 09/14/17 09/14/17 09/14/17 09/15/17 19:00 20:00 22:56 03:03 Temp 98.1 97.8 98.2 98.1 97.8 98.2 Pulse 63 65 80 Resp 18 18 16 B/P (MAP) 133/83 (100) 116/68 (84) 103/69 (80) Pulse Ox 97 95 97 O2 Delivery Room Air Room Air Room Air Room Air 09/15/17 07:00 Temp 98.2 98.2 Pulse 61 Resp 22 B/P (MAP) 121/60 (80) Pulse Ox 98 O2 Delivery Room Air Intake and Output 09/14/17 09/14/17 09/15/17 15:00 23:00 07:00 Intake Total 300 ml 1100 ml 850 ml Output Total 700 ml Balance -400 ml 1100 ml 850 ml MOSES MOHAN MD Sep 15, 2017 08:53
[2017-09-15] MEDS: ASPIRIN 325 MG TABLET PO SCH (09:18)
[2017-09-15 11:00] VITALS: BP 109/69
--- NOTE | 2017-09-15 14:38 | PDOC ---
Provider Note Provider Note pt seen and examined [id number] IMP; LLE DVT Celluitis of LLE improving High INR REC: DC IV Vanc and Zosyn Zyvox elevate leg local care FU with pcp and hematology Call if any questions DAVID CORDOVA MD Sep 15, 2017 14:38
[2017-09-15 15:00] VITALS: BP 124/77
[2017-09-15] MEDS ORDERED: LINEZOLID 600 MG TABLET PO SCH (15:00)
[2017-09-15] MEDS ORDERED: WARFARIN 6 MG TABLET. PO SCH (16:00)
[2017-09-15] MEDS: WARFARIN 4 MG TABLET. PO SCH (16:01)
[2017-09-15] MEDS ORDERED: AMOX1TAB61 PO (16:37)
[2017-09-15] MEDS ORDERED: LACT460C PO (16:37)
--- NOTE | 2017-09-15 18:06 | PDOC3 ---
Discharge Summary [facility] Date of Admission: Sep 14, 2017 Discharge Date: Sep 15, 2017 Admitting Diagnosis cellulitis of left leg Problems: Final Diagnosis Problems Medical Problems: (1) Cellulitis of left lower extremity Status: Acute (2) Deep vein thrombosis (DVT) of left lower extremity Status: Acute CONSULTS Wilmer MORRISON, Dr. Ford Procedures none Brief Hospital Course Mr. Guo is a 42 old who presented with acute onset of redness and swelling of left leg with elevated sed rate and CRP lab and admitted for IV antibiotics. He was recently admitted for a DVT and required thrombolysis twice of the clot on prior admissions but imaging studies have shown improvement so it was felt that the swelling was related to infection particularly since he was wearing a compression sock when his symptoms developed. He has been seen by Wilmer who feels it is appropriate to continue him on warfarin. His dose is adjusted though as his INR was 4 yesterday and still 3.5 today. He was originally placed on IV vanco and IV Zosyn and the redness and swelling in his leg have dramatically improved. There was no evidence of infection around the incision sites of his popliteal left leg where his thrombolysis incisions were Problems: Disposition home CONDITION AT DISCHARGE: Improved, Stable Scheduled Aspirin (Aspirin), 325 MG PO [id number] Warfarin Sodium (Coumadin), 1 TAB PO BID, (Reported) Follow Up 1-2 weeks Patient Instructions warfarin dose decreased to 9 mg daily Nevaeh DEAN MD Sep 15, 2017 18:06
--- NOTE | 2017-09-15 19:26 | CONS ---
DATE OF CONSULTATION: 09/15/2017 REFERRING PHYSICIAN: Dr. Valladares. REASON FOR CONSULTATION: Cellulitis, left lower extremity. HISTORY OF PRESENT ILLNESS: A 42-year-old male who was recently diagnosed with deep venous thrombosis, extensive, affecting the left lower extremity with 2 admissions in the last month, returned with redness, pain and swelling over the left leg a few days prior to admission. He denied any fever or chills, denied any history of trauma. He underwent a Doppler ultrasound, which showed that he has persistent thrombosis affecting the left lower extremity. He initially had admission on 08/14/2017, at which time he had extensive left lower extremity deep vein thrombosis. He was started on Lovenox and transitioned to warfarin. 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 Multiple large collateral vessels were noted. Vascular Surgery was consulted. CT angiogram of the chest was negative for pulmonary embolism. On 08/17/2017, catheter-directed thrombolysis was performed and that was partially successful with decrease in the clot burden. Vascular Surgery had recommended Coumadin and aspirin and long-term anticoagulation. The patient was discharged on 08/20/2017 with aspirin, Coumadin and Lovenox. He was readmitted again on 08/23/2017 with worsening of left leg pain and swelling. INR was subtherapeutic at 1.5. Interventional Radiology was consulted. He underwent thrombolysis on 08/25/2017. He was placed on heparin and transitioned on p.o. Coumadin. He was admitted on 09/14/2017 for cellulitis of left lower extremity. INR was high at 4.0. Venous Doppler on 09/14/2017 showed occlusive thrombus seen involving the left popliteal vein. Nonocclusive thrombus is seen involving the left distal superficial femoral vein. The remaining left superficial, left femoral vein and left common femoral vein are patent. These findings are improved since the previous admission. The patient denies any nausea, vomiting, diarrhea, abdominal pain, shortness of breath, cough, headache, visual disturbances, oral lesions, skin lesions, or any sores. 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 He denies any difficulty walking, denies any joint pain. PAST MEDICAL HISTORY: Deep venous thrombosis diagnosed 08/14/2017, extensive, involving left lower extremity. He reports having superficial vein thrombosis in left calf region in 2013 and he was recommended aspirin, but no anticoagulation at that time. SOCIAL HISTORY: Denies ETOH, illicit drug use, or smoking. Works in the [employer] department. FAMILY HISTORY: Positive for diabetes. REVIEW OF SYSTEMS: Negative except for above. PHYSICAL EXAMINATION: VITAL SIGNS: Temperature 98, pulse 96, respiratory rate 20, blood pressure 109/69, oxygen saturation 98% on room air. HEENT: Normocephalic, atraumatic. No oral lesions. Anicteric, no conjunctival lesions. NECK: Supple. No JVD. LUNGS: Clear bilaterally. HEART: S1, S2. No gallops or murmurs. ABDOMEN: Soft, nontender, no masses, nondistended. No rebound, no guarding. EXTREMITIES: Left lower extremity shows swelling, erythema, minimal warmth. No skin lesions noted. No open wounds noted. MUSCULOSKELETAL: No joint swelling seen. PSYCHOLOGIC: Mood and affect appropriate. MUSCULOSKELETAL: No joint effusion. DERMATOLOGIC: No generalized rash. LABORATORY DATA: Vancomycin trough 19.1. WBC 7.5, hemoglobin 10.7, down from 12, hematocrit 32.9, platelets 302. Chemistry: Sodium 141, potassium 3.7, chloride 104, bicarbonate 27, BUN 11, creatinine 1.1, glucose 119. LFTs within normal limits. Albumin 3.1. INR 3.5 today. IMAGING: Tibia-fibula, impression: Soft tissue swelling, no acute osseous abnormality noted. Ultrasound of lower extremity shows deep venous thrombosis involving the left popliteal vein extending into the distal left superficial femoral vein. IMPRESSION: 1. History of deep vein thrombosis, extensive of left lower extremity, status post thrombolysis as above. 2. Erythema involving left lower extremity, could be postphlebitic syndrome versus mild cellulitis. Improving on IV vancomycin and Zosyn. The patient otherwise feels well. He is requesting to be discharged home soon. RECOMMENDATIONS: 1. The patient is clinically doing better. 2. Afebrile, normal white count. 3. Hemodynamically stable. 4. We will change IV vancomycin and Zosyn to po Zyvox. 5. Needs local care for postphlebitic syndrome. 6. Elevate leg as much as possible. 7. Continue local skin care. 8. Continue to follow up with Hematology. 9. The patient can be discharged home from Infectious Disease aspect. The patient to follow up with PCP and Hematology. Thank you for allowing Infectious Disease to participate in this patient's care. DAVID CORDOVA MD DR: ANIYA/issac JOB#: [id number] / [id number] AUDI
[2017-09-15] MEDS ORDERED: WARF6TAB49 PO ×2 (20:06→20:08)
[2017-09-15] MEDS ORDERED: VANCOMYCIN 1.75 GM in IV DEXTROSE 5 %-0.2 % NACL 500 ML IV SCH (21:00)
[2017-09-15] MEDS ORDERED: LACTOBACILLUS RHAMNOSUS GG 1 CAPSULE. PO SCH (21:00)
== END 2017-09-15 20:24 | disposition home or self-care (01) | DRG 603 ==
LOC: ER 09:16 → 5 SOUTH 11:10
PROVIDERS: ADMIT Family Medicine; ATTEND Family Medicine
DX: L03.116 Cellulitis of left lower limb (principal); D68.51 Activated protein C resistance; D68.59 Other primary thrombophilia; I82.412 Acute embolism and thrombosis of left femoral vein; I82.432 Acute embolism and thrombosis of left popliteal vein; Z79.01 Long term (current) use of anticoagulants; Z79.82 Long term (current) use of aspirin; Z83.3 Family history of diabetes mellitus; Z86.718 Personal history of other venous thrombosis and embolism; Z94.7 Corneal transplant status
CPT/HCPCS: 36415; 73590; 80053; 80202; 83605; 85025; 85027; 85610; 85651; 85730; 86140; 87040; 93971; 96365; J2543; J3370; J7040; 99285-25